=== PATIENT | female | born 1950 | race Caucasian/White ===

== ENCOUNTER → 2016-09-06 | Outpatient (CLI) | payer OTHER ==
[~2016-09-06] MED LIST: ESCI10TA17 PO
--- NOTE | 2016-09-06 16:31 | DIAGNOSTIC IMAGING REPORT ---
TWO VIEW CHEST CLINICAL HISTORY: Pulmonary nodules. Cough and dyspnea. FINDINGS: PA and lateral chest radiographs are compared to study dated 12/13/2011 and correlated with chest CT dated 12/30/2014. The cardiomediastinal silhouette is unremarkable. Scattered calcified granulomas are incidentally noted and unchanged. No airspace consolidation or pleural effusion is identified. There is no pneumothorax. The skeletal structures are osteopenic. The bony thorax appears intact. Cholecystectomy clips are seen in the right upper quadrant. IMPRESSION: No active disease in the chest. Electronically signed by: Law Witt M.D. 09/06/2016 4:30 PM Dictated Date/Time: 09/06/2016 4:28 PM
== END | disposition home or self-care (01) ==
LOC: C.RADPV 16:13
PROVIDERS: ATTEND Nurse Practitioner
DX: R05 Cough (principal); R06.09 Other forms of dyspnea; R91.8 Other nonspecific abnormal finding of lung field

== ENCOUNTER → 2016-09-09 | Outpatient (CLI) | payer OTHER ==
[2016-09-09 13:18] LABS: BLOOD UREA NITROGEN 12 mg/dl (7-18); BUN/CREATININE RATIO 16.9 (10-20); CARBON DIOXIDE 28 mmol/L (21-32); CHLORIDE 108 mmol/L (98-107); CREATININE 0.74 mg/dl (0.60-1.20); GLUCOSE 97 mg/dl (70-99); SODIUM 142 mmol/L (136-145)
[2016-09-09 13:21] LABS: CHOLESTEROL 167 mg/dl (0-200); CHOLESTEROL/HDL RATIO 3.2; HDL CHOLESTEROL 53 mg/dl; LDL CHOLESTEROL CALCULATED 84 mg/dl; TRIGLYCERIDES 148 mg/dl (0-150); VERY LOW DENSITY LIPOPROT CALC 30 mg/dl
== END | disposition home or self-care (01) ==
LOC: C.LABPVFM 09:50
PROVIDERS: ATTEND Nurse Practitioner
DX: Z13.220 Encounter for screening for lipoid disorders (principal); Z13.1 Encounter for screening for diabetes mellitus; M81.0 Age-related osteoporosis without current pathological fracture

== ENCOUNTER → 2016-09-13 | Outpatient (CLI) | payer OTHER ==
[~2016-09-13] MED LIST changes: +OPTIRAY 320 IV PRN
--- NOTE | 2016-09-13 09:57 | DIAGNOSTIC IMAGING REPORT ---
CT ANGIOGRAM OF THE CHEST CLINICAL HISTORY: Persistent cough COMPARISON STUDY: 12/30/2014 TECHNIQUE: Following the IV administration of 92 mL of Optiray-320, CT angiogram of the thorax was performed from the thoracic inlet to the lung bases utilizing the pulmonary embolus protocol. Images are reviewed in the axial, sagittal, and coronal planes. IV contrast was administered without complication. MIP imaging was performed. CT DOSE: 435.91 mGycm FINDINGS: No pathologically enlarged axillary mediastinal or hilar lymph nodes were visualized. There was no evidence of thoracic aortic dilatation. There were no pulmonary artery filling defects to indicate acute pulmonary embolism. No pleural effusions are visualized. There is no evidence of focal pulmonary consolidation. There are scattered calcified granulomas. There is a stable 4 mm noncalcified right lower lobe point nodule. There is a stable 3 mm subpleural noncalcified right lower lobe pulmonary nodule. There is a third 3 mm noncalcified right lower lobe pulmonary nodule which also remain stable. There is a stable 4 mm noncalcified subpleural lingular nodule. IMPRESSION: 1. No CT evidence of acute pulmonary embolism 2. No evidence of pathologic adenopathy 3. Stable calcified and noncalcified solid subcentimeter pulmonary nodules. No follow-up is indicated. 4. No evidence of acute parenchymal consolidation Electronically signed by: Jose Martin Casey M.D. 09/13/2016 9:56 AM Dictated Date/Time: 09/13/2016 9:50 AM
--- NOTE | 2016-09-13 10:00 | DIAGNOSTIC IMAGING REPORT ---
ABDOMEN COMPLETE (US) HISTORY: R05 Cough, [id number] Abdominal fullness in left upper quad TECHNIQUE: Multiple real time sonographic images of the abdomen were obtained assessing hickman-scale appearance. FINDINGS: PANCREAS: The pancreas is partially obscured by bowel gas. The visualized portions of the pancreas are normal without focal lesion or pancreatic duct dilatation. LIVER: The liver demonstrates a homogeneous parenchymal echotexture. There is no intrahepatic bile duct dilation, focal lesion, or contour nodularity. There is no ascites. The liver is not well seen secondary to obscuring bowel gas. GALLBLADDER: Surgically absent. The common bile duct measures 0.03 cm. RIGHT KIDNEY: The right kidney measures 10.2 cm. The parenchymal echotexture and cortical thickness are normal. No nephrolithiasis or hydronephrosis. LEFT KIDNEY: The left kidney measures 10.9 cm. The parenchymal echotexture and cortical thickness are normal. No nephrolithiasis or hydronephrosis. Thin-walled centrally anechoic benign-appearing cyst of the superior pole left kidney seen measuring up to 2.4 cm. SPLEEN: The spleen measures 9.6 cm and is normal in echotexture. Calcifications of the spleen are seen. VASCULATURE: The abdominal aorta and IVC appear unremarkable. The aorta measures up to 1.9 cm proximally. IMPRESSION: 1. No acute sonographic abnormality of the abdomen is identified. 2. Calcifications of the spleen suggest prior granulomatous disease. 3. Benign-appearing cyst of the left kidney measures 2.4 cm. 4. Surgically absent gallbladder. The above report was generated using voice recognition software. It may contain grammatical, syntax or spelling errors. Electronically signed by: Elias Irving M.D. 09/13/2016 9:58 AM Dictated Date/Time: 09/13/2016 9:53 AM
== END | disposition home or self-care (01) ==
LOC: C.CTS 09:04
PROVIDERS: ATTEND Nurse Practitioner
DX: R06.09 Other forms of dyspnea (principal); R05 Cough; R91.8 Other nonspecific abnormal finding of lung field; D73.89 Other diseases of spleen; N28.1 Cyst of kidney, acquired; Z90.49 Acquired absence of other specified parts of digestive tract

== ENCOUNTER → 2016-09-20 | Outpatient (CLI) | payer OTHER ==
[~2016-09-20] MED LIST changes: -OPTIRAY 320 IV PRN
== END | disposition home or self-care (01) ==
LOC: C.LABPVFM 09:43
PROVIDERS: ATTEND Nurse Practitioner
DX: R05 Cough (principal); R06.09 Other forms of dyspnea

== ENCOUNTER → 2016-09-23 | Outpatient (CLI) | payer OTHER ==
[2016-09-23 14:51] LABS: BASO % 0.8 %; BASO ABS # 0.06 K/uL (0-0.2); COMPLETE YES; EOS % 1.4 %; HEMATOCRIT 38.1 % (37-47); IG% 0.1 %; LYMPH % 18.7 %; LYMPH ABS # 1.37 K/uL (1.2-3.4); MEAN CELL VOLUME 75.7 fL (80-100); MEAN CORPUSCULAR HEMOGLOBIN 24.3 pg (25-34); MEAN PLATELET VOLUME 8.9 fL (7.4-10.4); MONO % 7.2 %; NEUT % 71.8 %; PLATELET COUNT 258 K/uL (130-400); RED BLOOD COUNT 5.03 M/uL (4.2-5.4); WHITE BLOOD COUNT 7.34 K/uL (4.8-10.8)
[2016-09-25 14:20] LABS: QUANTIFERON NIL 0.07 IU/ML
[2016-09-28 05:18] LABS: ANTI-CENTROMERE AB <1.0 NEG AI (<1.0 NEG); ANTI-SS-A <1.0 NEG AI (<1.0 NEG); ANTI-SS-B <1.0 NEG AI (<1.0 NEG); DNA ds CRITHIDIA NEGATIVE (NEGATIVE); Sm Antibody <1.0 NEG AI (<1.0 NEG)
== END | disposition home or self-care (01) ==
LOC: C.LAB1850 12:36
PROVIDERS: ATTEND Internal Medicine Pulmonary Disease
DX: J84.10 Pulmonary fibrosis, unspecified (principal); M19.90 Unspecified osteoarthritis, unspecified site; R05 Cough

== ENCOUNTER → 2016-11-20 | Outpatient (CLI) | payer OTHER ==
--- NOTE | 2016-11-20 15:16 | MAMMOGRAPHY REPORT ---
BILATERAL DIGITAL DIAGNOSTIC MAMMOGRAM TOMOSYNTHESIS WITH CAD AND TARGETED LEFT ULTRASOUND: 11/20/2016 CLINICAL HISTORY: 66-year-old woman presents with a palpable lump and sharp pain in the lower inner q uadrant of the left breast, worse with palpation. She has been feeling this abnormality "regularly o marilin the past 3 years". No skin erythema or nipple discharge. Family history of breast cancer = cous in. TECHNIQUE: Bilateral breast tomosynthesis in addition to standard 2D mammography was performed. Curre nt study was also evaluated with a Computer Aided Detection (CAD) system. COMPARISON: Comparison is made to exams dated: 01/27/2015 mammogram, 07/31/2010 mammogram, 07/27/2009 mammogram - [facility], 07/26/2008, 07/23/2007, and 07/18/2006. BREAST COMPOSITION: There are scattered areas of fibroglandular density in both breasts. FINDINGS: A square shaped skin pain marker overlies the abnormality in the lower inner quadrant of th e left breast, pointed out by the patient. There is stable asymmetry in the lateral left breast. No new suspicious mass, architectural distortion or cluster of microcalcifications is seen. Targeted ultrasound was performed in the area of palpable ridge and pain in the 8:00 left breast, 9 c m from the nipple, in the area pointed out by the patient. On palpation, there is a soft palpable ri dge. On ultrasound, there is sonographically normal tissue without evidence of a discrete solid or c ystic mass. IMPRESSION: ACR BI-RADS CATEGORY 2: BENIGN, TARGETED ULTRASOUND ACR BI-RADS CATEGORY 2: BENIGN 1. No suspicious mammographic or sonographic abnormality in the area of pain and palpable ridge in th e 8:00 left breast. Therefore, clinical follow-up is recommended, as biopsy of a clinically suspicio us mass should not be precluded by negative imaging. 2. Overall, there is no mammographic or targeted sonographic evidence of malignancy. A 1 year screen ing mammogram is recommended. The patient has been verbally notified of the results. Approximately 10% of breast cancers are not detected with mammography. A negative mammographic report should not delay biopsy if a clinically suggestive mass is present. Alka Huff M.D. ay/:11/20/2016 08:43:58 Box Sealing Machine Feeder: Kathi Iniguez, [facility] letter sent: Normal 03/04 BI-RADS Code: ACR BI-RADS Category 2: Benign Ultrasound BI-RADS: ACR BI-RADS Category 2: Benign
== END | disposition home or self-care (01) ==
LOC: C.MAMM 07:58
PROVIDERS: ATTEND Nurse Practitioner
DX: N64.4 Mastodynia (principal)

== ENCOUNTER → 2016-12-20 | Outpatient (CLI) | payer OTHER | END | disposition home or self-care (01) | LOC: C.LAB1850 08:54 | PROVIDERS: ATTEND Internal Medicine Pulmonary Disease | DX: R05 Cough (principal) ==

== ENCOUNTER → 2017-04-22 | Outpatient (CLI) | payer OTHER ==
[~2017-04-22] MED LIST changes: +DOXY100C76 PO; +ESCI1TAB10 PO; +MOME200A INH
--- NOTE | 2017-04-22 14:10 | DIAGNOSTIC IMAGING REPORT ---
R VENOUS DOPP LOWER EXT UNILAT CLINICAL HISTORY: 729.5,M79.669 pain. Edema. TECHNIQUE: Venous Doppler COMPARISON STUDY: None FINDINGS: Mild soft tissue edema anterior aspect of the lower leg. All major venous structures are unremarkable. Flow characteristics as well as impedance characteristics are unremarkable. There is no evidence for abnormality of augmentation. IMPRESSION: Normal study with no evidence for deep venous thrombosis. Mild soft tissue edema anterior aspect of the lower leg. The above report was generated using voice recognition software. It may contain grammatical, syntax or spelling errors. Electronically signed by: Rob Fagan M.D. 04/22/2017 2:08 PM Dictated Date/Time: 04/22/2017 2:07 PM
== END | disposition home or self-care (01) ==
LOC: C.ULTRBC 13:40
PROVIDERS: ATTEND Nurse Practitioner
DX: M79.669 Pain in unspecified lower leg (principal)

== ENCOUNTER 2017-04-28 13:50 | Emergency (ER) | payer OTHER ==
[~2017-04-28] VITALS: Ht 160 cm; Wt 72.7 kg
[~2017-04-28 13:50] MED LIST changes: -DOXY100C76 PO; -ESCI1TAB10 PO; -MOME200A INH
[2017-04-28 13:53] VITALS: Ht 160 cm; Wt 72.7 kg
--- NOTE | 2017-04-28 14:22 | EMERGENCY ROOM VISIT NOTE ---
History First contact with patient: 14:07 Chief Complaint: OTHER COMPLAINT Stated Complaint: CELLULITUS History of Present Illness The patient is a 66 year old female who presents to the Emergency Room via private vehicle accompanied by with complaints of "cellulitis". The patient states that for the past 3 weeks she has been experiencing at the medial aspect of the R distal ankle. She notes that it is worse with movement of the right ankle, ambulation and her swelling at nighttime. She notes minimal redness. She has been treated by the family doctor for cellulitis but notes that the pain progresses. She is on doxycycline. She denies any fevers or chills. She rates the pain at times as a 10/10. The worst position for the foot is in plantarflexion with driving in regard to pain Review of Systems A complete 6-point Review of Systems was discussed with the patient, with pertinent positives and negatives listed in the History of Present Illness. All remaining Review of Systems questions can be considered negative unless otherwise specified. Past Medical/Surgical History No pertinent Social History Smoking Status: Never Smoker Marital Status: Occupation Status: employed Current/Historical Medications Scheduled Doxycycline Monohydrate (Monodox), 100 MG PO BID Escitalopram Oxalate (Lexapro), 20 MG PO DAILY Mometasone Furoate-Formoterol (Dulera 200/5 Mcg), 2 PUFFS INH BID Physical Exam Vital Signs Date Time Temp Pulse Resp B/P (MAP) Pulse Ox O2 Delivery O2 Flow Rate FiO2 04/28/17 13:53 36.5 88 18 118/78 96 Room Air Physical Exam VITAL SIGNS - Vital signs and nursing notes were reviewed. Stable, afebrile. GENERAL -66-year-old female appearing her stated age who is in no acute distress. Communicates well with provider and answers questions appropriately. SKIN - Minimal erythema overlying the distal lizarraga and medial R ankle. HEAD - NC/AT. EXTREMITIES - No clubbing or peripheral cyanosis. No pretibial edema present. Skin as above. There is tenderness overlying the R medial ankle and distal lizarraga. She is neurovascularly intact in the RLE. Medical Decision & Procedures ER Provider Diagnostic Interpretation: R TIBIA/FIBULA 2 VIEWS ROUTINE CLINICAL HISTORY: 66 years-old Female presenting with R lizarraga pain. TECHNIQUE: Frontal and lateral views of the right lower leg were obtained. COMPARISON: None. FINDINGS: Knee joint and ankle mortise congruent. No acute fracture or malalignment. No advanced degenerative change. No radiographic soft tissue abnormality. IMPRESSION: No acute osseous injury of the right lower leg. Electronically signed by: Jose Casillas M.D. 04/28/2017 2:42 PM Dictated Date/Time: 04/28/2017 2:41 PM Laboratory Results 04/28/17 14:24 Red Blood Count 4.82, Mean Corpuscular Volume 80.3, Mean Corpuscular Hemoglobin 26.8, Mean Corpuscular Hemoglobin Concent 33.3, Mean Platelet Volume 8.8, Neutrophils (%) (Auto) 55.3, Lymphocytes (%) (Auto) 33.4, Monocytes (%) (Auto) 6.5, Eosinophils (%) (Auto) 2.8, Basophils (%) (Auto) 1.8, Neutrophils # (Auto) 3.00, Lymphocytes # (Auto) 1.81, Monocytes # (Auto) 0.35, Eosinophils # (Auto) 0.15, Basophils # (Auto) 0.10 04/28/17 14:24 Test 04/28/17 14:24 White Blood Count 5.42 K/uL (4.8-10.8) Red Blood Count 4.82 M/uL (4.2-5.4) Hemoglobin 12.9 g/dL (12.0-16.0) Hematocrit 38.7 % (37-47) Mean Corpuscular Volume 80.3 fL (80-100) Mean Corpuscular Hemoglobin 26.8 pg (25-34) Mean Corpuscular Hemoglobin Concent 33.3 g/dl (32-36) Platelet Count 231 K/uL (130-400) Mean Platelet Volume 8.8 fL (7.4-10.4) Neutrophils (%) (Auto) 55.3 % Lymphocytes (%) (Auto) 33.4 % Monocytes (%) (Auto) 6.5 % Eosinophils (%) (Auto) 2.8 % Basophils (%) (Auto) 1.8 % Neutrophils # (Auto) 3.00 K/uL (1.4-6.5) Lymphocytes # (Auto) 1.81 K/uL (1.2-3.4) Monocytes # (Auto) 0.35 K/uL (0.11-0.59) Eosinophils # (Auto) 0.15 K/uL (0-0.5) Basophils # (Auto) 0.10 K/uL (0-0.2) RDW Standard Deviation 47.4 fL (36.4-46.3) RDW Coefficient of Variation 16.1 % (11.5-14.5) Immature Granulocyte % (Auto) 0.2 % Immature Granulocyte # (Auto) 0.01 K/uL (0.00-0.02) Erythrocyte Sedimentation Rate 7 mm/hr (0-21) Prothrombin Time 10.0 SECONDS (9.0-12.0) Prothromb Time International Ratio 1.0 (0.9-1.1) Activated Partial Thromboplast Time 23.9 SECONDS (21.0-31.0) Partial Thromboplastin Ratio 0.9 Anion Gap 5.0 mmol/L (3-11) Est Creatinine Clear Calc Drug Dose 79.8 ml/min Estimated GFR () 107.1 Estimated GFR (Non- 92.4 BUN/Creatinine Ratio 18.9 (10-20) Calcium Level 8.5 mg/dl (8.5-10.1) Magnesium Level 2.1 mg/dl (1.8-2.4) Total Bilirubin 0.3 mg/dl (0.2-1) Aspartate Amino Transf (AST/SGOT) 21 U/L (15-37) Alanine Aminotransferase (ALT/SGPT) 28 U/L (12-78) Alkaline Phosphatase 116 U/L (45-117) Total Creatine Kinase 75 U/L (26-192) C-Reactive Protein < 0.29 mg/dl (0-0.29) Total Protein 7.1 gm/dl (6.4-8.2) Albumin 3.6 gm/dl (3.4-5.0) Globulin 3.5 gm/dl (2.5-4.0) Albumin/Globulin Ratio 1.0 (0.9-2) Lyme Disease IgG Antibody NEG (NEG) Medical Decision Patient was seen and evaluated as above. She presents to us today with right distal leg pain. Recent ultrasound to rule out DVT was reviewed and was found to be negative. X-ray was obtained and negative. After obtaining a thorough history and physical examination the above work up was performed. There is no concerning leukocytosis, anemia or inflammatory marker. lyme Testing pending. I suspect she likely is experiencing a musculoskeletal etiology, and most likely insertion of the ligamentous structures at the right distal lizarraga/ankle. She will be given a Tim wrap, and is to follow with family doctor or orthopedics. She declined pain medication. The patient was educated upon management, had questions answered prior to discharge, and was discharged home in good condition. No evidence of infection on my exam. Case was discussed with the attending physician In the evaluation and treatment of this patient, the following differential diagnoses were considered: Ankle Fracture, Ankle Sprain, Distal Fibula Fracture , Distal Tibia Fracture, Foot Fracture, Maisonneuve Fracture. Impression Primary Impression: Ankle pain, right Departure Information Dispostion Home / Self-Care Condition GOOD Referrals Lillian Cabrera C.R.N.P (PCP) Daquan Ledezma M.D. Patient Instructions [facility] Additional Instructions You have been treated in the Emergency Department for a r Ankle pain and leg pain. For pain control, you can use the following [id number] medicines (if >12 yo): - Regular strength (325mg/tab) Tylenol (acetaminophen) 2 tabs every 4-6 hours as needed. Do not exceed 12 tablets in a 24 hour period. Avoid taking more than 3 grams (3000 mg) of Tylenol per day. This includes any other sources of acetaminophen you may take on a regular basis. - Regular strength (200 mg/tab) Advil (ibuprofen) 1-2 tabs every 4-6 hours as needed. Do not exceed a dose of 3200 mg per day. Ice every 3 hours for 30 minutes for the next 3 days then back off gradually You have been provided the number for an Orthopaedic Surgeon. You should call this number as soon as possible to establish a follow-up visit from today's Emergency Department visit. use the tim wrap for compression. Return to the Emergency Department if your current symptoms worsen despite treatment course outlined above, or if you develop any of the following symptoms : intractable pain despite aforementioned treatment course or new onset of numbness or tingling of the foot.
[2017-04-28 14:38] LABS: BASO % 1.8 %; EOS % 2.8 %; EOS ABS # 0.15 K/uL (0-0.5); HEMATOCRIT 38.7 % (37-47); HEMOGLOBIN 12.9 g/dL (12.0-16.0); IG# 0.01 K/uL (0.00-0.02); LYMPH % 33.4 %; LYMPH ABS # 1.81 K/uL (1.2-3.4); MEAN CELL VOLUME 80.3 fL (80-100); MEAN CORPUSCULAR HEMOGLOBIN 26.8 pg (25-34); MEAN CORPUSCULAR HGB CONC 33.3 g/dl (32-36); MEAN PLATELET VOLUME 8.8 fL (7.4-10.4); MONO % 6.5 %; MONO ABS # 0.35 K/uL (0.11-0.59); NEUT % 55.3 %; PLATELET COUNT 231 K/uL (130-400); RED CELL DISTRIBUTION WIDTH CV 16.1 % (11.5-14.5); RED CELL DISTRIBUTION WIDTH SD 47.4 fL (36.4-46.3); WHITE BLOOD COUNT 5.42 K/uL (4.8-10.8)
--- NOTE | 2017-04-28 14:44 | DIAGNOSTIC IMAGING REPORT ---
R TIBIA/FIBULA 2 VIEWS ROUTINE CLINICAL HISTORY: 66 years-old Female presenting with R lizarraga pain. TECHNIQUE: Frontal and lateral views of the right lower leg were obtained. COMPARISON: None. FINDINGS: Knee joint and ankle mortise congruent. No acute fracture or malalignment. No advanced degenerative change. No radiographic soft tissue abnormality. IMPRESSION: No acute osseous injury of the right lower leg. Electronically signed by: Jose Casillas M.D. 04/28/2017 2:42 PM Dictated Date/Time: 04/28/2017 2:41 PM
[2017-04-28 14:47] LABS: PTT PATIENT 23.9 SECONDS (21.0-31.0)
[2017-04-28 14:55] LABS: ALBUMIN 3.6 gm/dl (3.4-5.0); ALT/SGPT 28 U/L (12-78); AST/SGOT 21 U/L (15-37); BLOOD UREA NITROGEN 13 mg/dl (7-18); CALCIUM 8.5 mg/dl (8.5-10.1); CARBON DIOXIDE 28 mmol/L (21-32); CREATININE 0.68 mg/dl (0.60-1.20); GLUCOSE 87 mg/dl (70-99); POTASSIUM 4.1 mmol/L (3.5-5.1); SODIUM 139 mmol/L (136-145)
[2017-04-28 14:59] LABS: ALKALINE PHOSPHATASE 116 U/L (45-117); TOTAL PROTEIN 7.1 gm/dl (6.4-8.2)
[2017-04-28] MEDS ORDERED: MOME200A INH (15:12)
[2017-04-28] MEDS ORDERED: ESCI1TAB10 PO (15:12)
[2017-04-28] MEDS ORDERED: DOXY100C76 PO (15:12)
[2017-04-28 16:35] VITALS: BP 118/78; PULSE 88; TEMP 36.5; O2SAT 96
== END 2017-04-28 16:37 | disposition home or self-care (01) ==
LOC: C.EDB 13:52 → C.EDD 16:37
DX: M25.571 Pain in right ankle and joints of right foot (principal); L03.115 Cellulitis of right lower limb; Z79.899 Other long term (current) drug therapy

== ENCOUNTER → 2017-05-06 | Outpatient (CLI) | payer OTHER ==
[~2017-05-06] MED LIST changes: +DOXY100C76 PO; -ESCI10TA17 PO; +ESCI1TAB10 PO; +MOME200A INH
--- NOTE | 2017-05-06 17:14 | DIAGNOSTIC IMAGING REPORT ---
R LOWER EXT JOINT WITHOUT CLINICAL HISTORY: R ANKLE STRESS FX *PT HAS GALLBLADDER CLIP* trauma TECHNIQUE: Multi axial MRI acquisition COMPARISON STUDY: None FINDINGS: Signal characteristics the osseous structures indicate mild bone contusion with a potential small incomplete cortical stress fracture of the medial tibial metaphysis. Signal characteristics of all remaining osseous structures are unremarkable. All major ligamentous and tendinous structures are intact. Collateral ligaments are intact. There is mild soft tissue edema at the medial aspect of the ankle. There is perhaps a slight degree of mild posterior tibial tendon tendinopathy. Ankle mortise is aligned anatomically. Structures the plantar fascia are unremarkable. IMPRESSION: 1. Bone marrow edema of the anteromedial aspect of the distal tibia suggesting either bone contusion and/or incomplete hairline cortical stress fracture. 2. This is associated with mild soft tissue edema at the medial aspect of the ankle and minimal/mild posterior tibial tendinopathy. 3. All remaining ligamentous and tendinous structures are unremarkable. The above report was generated using voice recognition software. It may contain grammatical, syntax or spelling errors. Electronically signed by: Rob Fagan M.D. 05/06/2017 5:12 PM Dictated Date/Time: 05/06/2017 5:05 PM
== END | disposition home or self-care (01) ==
LOC: C.MRIBC 16:28
PROVIDERS: ATTEND Orthopaedic Surgery Orthopaedic Surgery of the Spine
DX: M84.371A Stress fracture, right ankle, initial encounter for fracture (principal); X58.XXXA Exposure to other specified factors, initial encounter

== ENCOUNTER → 2017-06-27 | Outpatient (CLI) | payer OTHER ==
--- NOTE | 2017-06-27 12:36 | DIAGNOSTIC IMAGING REPORT ---
RIGHT LOWER EXTREMITY VENOUS DOPPLER CLINICAL HISTORY: PAIN R LOWER LEG COMPARISON STUDY: Right lower extremity venous Doppler April 22, 2017. TECHNIQUE: Sonography of the deep venous system of the right lower extremity was performed. Compression and augmentation were evaluated. FINDINGS: The right common femoral, superficial femoral and popliteal veins were compressible. Augmentation was normal. Flow was shown within the deep calf vessels. IMPRESSION: No evidence of deep venous thrombus within the right lower extremity. Electronically signed by: Peyman Tate M.D. 06/27/2017 12:34 PM Dictated Date/Time: 06/27/2017 12:34 PM
== END | disposition home or self-care (01) ==
LOC: C.ULTR 12:10
PROVIDERS: ATTEND Family Medicine Sports Medicine
DX: M79.661 Pain in right lower leg (principal); M79.89 Other specified soft tissue disorders

== ENCOUNTER → 2017-06-27 | Outpatient (CLI) | payer OTHER | END | disposition home or self-care (01) | LOC: C.RDSM 10:30 | PROVIDERS: ATTEND Family Medicine Sports Medicine | DX: M79.604 Pain in right leg (principal) ==

== ENCOUNTER 2022-05-16 13:55 | Inpatient (IN) ==
[2022-05-16] MEDS ORDERED: ALBUT/IPRATROP 3MG/0.5MG NEB 3 ML VIAL INH STA (14:01)
--- NOTE | 2022-05-16 14:01 | ED Triage Note ---
Date of Service May 16, 2022 History of Present Illness This patient was briefly evaluated while in triage. An abbreviated physical exam was performed. This patient is a 71-year-old Female who presents to the ED for evaluation of SOB started yesterday hx of COPD no chest pain using inhalers but no nebulizers productive cough no fevers Physical Exam GENERAL: NAD CARDIOVASCULAR: RRR RESPIRATORY: audible upper airway sounds, wheezes throughout ABDOMEN: BS x 4. Nontender to palpation. Initial orders for labs and / or imaging were placed and patient was placed in the waiting area until a bed is available. Please see further documentation for the full ED course.
[2022-05-16 15:04] LABS: Basophils # (auto) 0.05 K/uL (0-0.2); Basophils % (auto) 0.4 %; Eosinophils # (auto) 0.16 K/uL (0-0.50); Eosinophils % (auto) 1.3 %; Hematocrit (blood only) 42.4 % (37.0-47.0); Hemoglobin 15.4 g/dl (12.0-16.0); Immature Granulocytes # (auto) 0.04 K/uL (0.01-0.20); Immature Granulocytes % (auto) 0.3 %; Lymphocytes # (auto) 1.87 K/uL (1.2-3.4); Lymphocytes % (auto) 14.9 %; Mean Corpuscular Hemoglobin 30.4 pg (25.0-34.0); Mean Corpuscular Hgb Conc 36.3 g/dL (32.0-36.0); Mean Corpuscular Volume 83.6 fL (80.0-100.0); Mean Platelet Volume 9.2 fL (9.4-12.4); Monocytes # (auto) 1.01 K/uL (0.11-0.59); Monocytes % (auto) 8.1 %; Neutrophils # (auto) 9.39 K/uL (1.40-6.50); Platelet Count 291 K/uL (130-400); RDW Coefficient of Variation 13.1 % (11.5-14.5); RDW Standard Deviation 39.6 fL (36.4-46.3); Red Blood Count 5.07 M/uL (4.20-5.40); White Blood Count 12.52 K/ul (4.8-10.8)
--- NOTE | 2022-05-16 15:14 | XRay Report ---
XR chest 2V PA/lateral CLINICAL HISTORY: Dyspnea. COMPARISON STUDY: Chest CT October 25, 2021. FINDINGS: Lung volumes are normal. There is no consolidation to suggest pneumonia. Calcified pulmonar y nodules are again noted. There is no pneumothorax or pleural effusion. Cardiac size is normal. Medi astinal contours are normal. There is no evidence for pulmonary edema. IMPRESSION: No acute cardiopulmonary findings. No change in appearance of the chest. ACT 112: Negative or not required by law. Electronically signed by: Peyman Tate M.D. 05/16/2022 3:13 PM
[2022-05-16 15:23] LABS: Albumin Globulin Ratio 1.3 (0.9-2); Albumin Level 4.5 gm/dl (3.4-5.0); BUN Creatinine Ratio 15.5 (10-20); Bilirubin,Total 1.1 mg/dl (0.2-1.0); Calcium 9.7 mg/dl (8.5-10.1); Creatinine Clr Calc Pharmacy 68.8 ml/min; Est GFR (African American) 100.7 ml/min; Est GFR (Non-African American) 86.9 ml/min; Globulin 3.4 gm/dl (2.5-4.0); Potassium 3.8 mmol/L (3.5-5.1); Total Protein 7.9 gm/dl (6.0-8.3)
[2022-05-16 15:29] LABS: Troponin I High Sensitivity 5.7 pg/ml (0-14)
--- NOTE | 2022-05-16 16:23 | Emergency Department Note ---
Impression & Plan Dyspnea on exertion, Diffuse wheezing, Cough ED Provider Note NAME: RACHEL STERN AGE: 71 SEX: F : 1950 ARRIVES VIA: Walk-In INFORMANT: Patient, ED PROVIDER(S): Ambrose Shepherd MD CHIEF COMPLAINT: Shortness of breath, cough MEDICAL DECISION MAKING: Patient presents due to concern for worsening shortness of breath that began yesterday. The patient does have HARTMAN but no orthopnea or leg swelling. Blood work was obtained and IV was established. The patient had already received DuoNeb treatments and did have improvement in symptoms. Additional hour-long ordered along with IV fluids IV Zofran and 2 g of IV magnesium to be given over 1 hour. Bio fire also ordered. I did review the patient's blood work. Patient WBC of 12 with a normal H&H and platelet count. Kidney function is unremarkable. BSG 120. Bilirubin 1.1 but no right upper quadrant pain. Troponin not elevated. EKG with no signs of obvious STEMI. I did reevaluate the patient after treatment the patient did have improvement in symptoms but the patient's exam is not improved. Given this I do not think it lozada to send the patient home at this time. The patient did undergo an ambulatory trial and did not desat but still given the patient's persistent exam urgency with the on-call hospitalist service. It is with the on-call hospitalist service the patient was admitted back to Dr. Zuluaga. Prior /Outside records reviewed: Did review the patient's most recent pulmonary visit from Dr. Street in March 2022. Patient has history of granulomatous lung disease cough and multiple pulmonary nodules. No reported need for follow-up of pulmonary nodules. Patient's PFTs from January noted lung volumes confirmed with mild restriction with decreased diffusion capacity which improves when adjusted for alveolar ventilation. Spirometry is normal without change after administration of inhaled bronchodilators. Patient reportedly is pending ENT follow-up. Differential diagnosis: Reactive airway disease, pneumonia, pneumothorax, COPD, CHF, infections, cardiac ischemia, pulmonary embolism, musculoskeletal, gastrointestinal, as well as other pathologies. Diagnostics, as interpreted by me: ECG: Normal sinus rhythm, rate 99 normal intervals normal axis no ST elevations, T wave flattening in V2. Cardiac monitoring: An order was placed for continuous cardiac monitoring. The monitor shows a rate of 105 with tachycardic and rate rhythm. Patient was placed on pulse oximetry Medical decision rules: None Imaging studies: See below HPI: Patient does present due to concern for shortness of breath and associated cough. Patient states that she has had some chronic symptoms but seem to worsen beginning yesterday. The patient has been seen by pulmonology and is still pending ENT follow-up. Patient does feel as though symptoms are coming from her chest and on her neck. Patient denies any current sore throat. Patient did feel better after DuoNeb treatment which was given in triage prior to being roomed. Patient states that she has not smoked since she was 23 years of age. 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 The patient has a prior history of kidney granulomatosis. Patient denies any chest pains or leg swelling no history of DVT or PE. No recent surgeries or travel. PAST MEDICAL HISTORY: See Below PAST SURGICAL HISTORY: See Below SOCIAL HISTORY: See Below HOME MEDICATIONS: See Below ALLERGIES: See Below VITALS: See Below PHYSICAL EXAMINATION: GENERAL: Mildly ill in appearance, actively vomiting, wearing glasses. EYE EXAM: Normal conjunctiva. PERRL, no anisocoria and EOM's grossly intact w/o pain. NECK: Supple, no nuchal rigidity, no adenopathy, non-tender. No signs of menin gismus. FROM of the neck with good chin to chest and neck extension. No stridor. LUNGS: Diffuse wheezing throughout. HEART: Tachycardic and regular, no MRG. ABDOMEN: Abdomen soft, non-tender, normo-active bowel sounds, no masses, no rebound or guarding. BACK: No CVA TTP. SKIN: No rashes and no bruising. UPPER EXTREMITIES: Upper extremities are grossly normal. LOWER EXTREMITIES: Grossly normal, no edema. Negative Homans' sign bilaterally. NEURO EXAM: A&O x3, cranial nerves II-XII grossly intact, normal speech, moves all 4 extremities. Past Med/Surg History Medical History Arthritis COVID-19 Depression Diverticulosis Granulomatous lung disease Hiatal hernia History of colon polyps Multiple pulmonary nodules Osteoporosis 03/24 dexa - osteopenia Peripheral edema Peripheral edema Surgical History History of bilateral tubal ligation History of cholecystectomy History of colonoscopy with polypectomy History of esophagogastroduodenoscopy (EGD) History of left knee surgery x5 History of low transverse section History of tonsillectomy and adenoidectomy History of tooth extraction all upper teeth/partial lower History of total hysterectomy with bilateral salpingo-oophorectomy (BSO) History of total left knee replacement (TKR) Hx of appendectomy Hx of laparoscopy Family History Sister Family history of diabetes mellitus Leukemia COPD (chronic obstructive pulmonary disease) Cancer Family hx colonic polyps Brother Family history of diabetes mellitus COPD (chronic obstructive pulmonary disease) Family hx colonic polyps Father Family history of diabetes mellitus Other No family history of adverse response to anesthesia Denies family history of Ovarian cancer Prostate cancer Myocardial infarction Breast cancer Colorectal cancer Social History Smoking Status: Former smoker Tobacco Type: Cigarettes Age Started Using Tobacco: 18; Age Quit Using Tobacco: 24; Second Hand Exposure: No (father/brothers smoked); Hx Alcohol Use: No Hx Substance Use: No Preferred Language: Mosotho Communication Ability: Effective Hearing Ability: Normal Tax Technician Required: No Beliefs That Will Affect Care: None marital status: / Current Living Situation: Alone Current Living Situation Comment: currently mom is staying with pt current occupational status: retired How many Children do You have: 1 Feels Safe at Home: Yes Childhood Exposure to Second-Hand Smoke: Yes caffeine: Yes Dental Care, Regularly: Yes Physical Activity Frequency: 5-6 Times per Week Seatbelt Use: always Sunscreen Use: Yes Assistive Devices: Denture - Upper, Denture - Lower and Glasses Allergies Allergies Allergy/AdvReac Type Severity Reaction Status Date / Time cefazolin Allergy Intermediate hives Verified 05/16/22 20:18 milnacipran [From Savella] Allergy Intermediate hives, Verified 05/16/22 20:18 nauseated duloxetine [From Cymbalta] AdvReac Severe Depression Verified 05/16/22 20:18 codeine AdvReac Mild NAUSEATED Verified 05/16/22 20:18 meperidine AdvReac Mild NAUSEATED Verified 05/16/22 20:18 morphine AdvReac Mild NASUEATED Verified 05/16/22 20:18 fabric softner Allergy Mild Unknown Uncoded 05/16/22 20:17 Home Meds Home Medications Medication Instructions Recorded Confirmed aluminum-mag hydroxide-simethicone 10 ml PO Q6H PRN .GI SYMPTOMS 03/14/22 05/16/22 200 mg-200 mg-20 mg/5 mL oral susp (Maalox Advanced) omeprazole magnesium 20 mg 20 mg PO DAILY PRN Acid Reflux 05/16/22 05/16/22 tablet,delayed release (Prilosec OTC) Previous Rx's Medication Instructions Recorded albuterol sulfate 90 mcg/actuation 1 inh inhalation QID PRN shortness 10/05/20 aerosol inhaler of breath or wheezing #8.5 grams diclofenac sodium 1 % topical gel 2 g topical QID PRN neck pain #100 10/05/20 grams escitalopram oxalate 20 mg tablet 20 mg PO QAM #30 tabs 06/07/21 fluticasone furoate 100 1 inh inhalation DAILY #60 ea 10/17/21 mcg-vilanterol 25 mcg/dose inhalation powder (Breo Ellipta) albuterol sulfate 2.5 mg/3 mL 2.5 mg (3 mL) inhalation QID PRN 01/07/22 (0.083 %) solution for nebulization shortness of breath or wheezing #90 mL montelukast 10 mg tablet 10 mg PO DAILY #30 tabs 02/01/22 (Singulair) Results & Data (ED) Vital Signs Vital Signs - 24 hr 05/16/22 13:59 05/16/22 14:01 05/16/22 14:41 Temperature 36.3 C L Temperature Source Skin Pulse Rate 108 H 115 H Pulse Rate from SpO2 Sensor Pulse Rhythm Regular Respiratory Rate 20 22 Respiratory Effort / Characteristics Non-Labored Spontaneous Non-Labored Spontaneous Respiratory Depth Normal Respiratory Pattern Regular Regular Blood Pressure 125/76 Blood Pressure Mean 92 Pulse Oximetry 94 95 Oxygen Delivery Method Room Air Room Air Nebulizer Oxygen Flow Rate 8 Sepsis Recent Fever Within 48 Hours No Sepsis New/Unexplained Change in Mental Status N/A Sepsis Action Taken by Nursing No Action Required 05/16/22 16:53 05/16/22 17:03 05/16/22 16:35 Temperature Temperature Source Pulse Rate 94 H 95 H Pulse Rate from SpO2 Sensor 96 H Pulse Rhythm Respiratory Rate 20 21 Respiratory Effort / Characteristics Non-Labored Spontaneous Respiratory Depth Respiratory Pattern Blood Pressure 132/77 Blood Pressure Mean 95 Pulse Oximetry 96 92 Oxygen Delivery Method Room Air Oxygen Flow Rate Sepsis Recent Fever Within 48 Hours Sepsis New/Unexplained Change in Mental Status Sepsis Action Taken by Nursing 05/16/22 17:00 05/16/22 17:30 05/16/22 18:00 Temperature Temperature Source Pulse Rate 99 H 80 115 H Pulse Rate from SpO2 Sensor 100 H 78 107 H Pulse Rhythm Respiratory Rate 19 22 23 Respiratory Effort / Characteristics Respiratory Depth Respiratory Pattern Blood Pressure Blood Pressure Mean Pulse Oximetry 90 98 98 Oxygen Delivery Method Oxygen Flow Rate Sepsis Recent Fever Within 48 Hours Sepsis New/Unexplained Change in Mental Status Sepsis Action Taken by Nursing 05/16/22 18:12 05/16/22 18:30 05/16/22 19:00 Temperature Temperature Source Pulse Rate 108 H 116 H 114 H Pulse Rate from SpO2 Sensor 85 71 115 H Pulse Rhythm Respiratory Rate 20 24 19 Respiratory Effort / Characteristics Respiratory Depth Respiratory Pattern Blood Pressure 145/65 H 118/51 L 128/66 Blood Pressure Mean 91 73 86 Pulse Oximetry 98 96 96 Oxygen Delivery Method Oxygen Flow Rate Sepsis Recent Fever Within 48 Hours Sepsis New/Unexplained Change in Mental Status Sepsis Action Taken by Nursing 05/16/22 19:30 Temperature Temperature Source Pulse Rate 123 H Pulse Rate from SpO2 Sensor 122 H Pulse Rhythm Respiratory Rate 18 Respiratory Effort / Characteristics Respiratory Depth Respiratory Pattern Blood Pressure 143/69 H Blood Pressure Mean 93 Pulse Oximetry 96 Oxygen Delivery Method Room Air Oxygen Flow Rate Sepsis Recent Fever Within 48 Hours Sepsis New/Unexplained Change in Mental Status Sepsis Action Taken by [facility] Medications Current Medication List: was personally reviewed by me Laboratory Data Attestation: I reviewed the patient's lab results. 05/16/22 14:43 05/16/22 14:43 Lab Results 05/16/22 05/16/22 05/16/22 Range/Units 14:43 14:43 16:48 WBC 12.52 H (4.8-10.8) K/ul RBC 5.07 (4.20-5.40) M/uL Hgb 15.4 (12.0-16.0) g/dl Hct 42.4 (37.0-47.0) % MCV 83.6 (80.0-100.0) fL MCH 30.4 (25.0-34.0) pg MCHC 36.3 H (32.0-36.0) g/dL RDW Std Deviation 39.6 (36.4-46.3) fL RDW Coeff of Divya 13.1 (11.5-14.5) % Plt Count 291 (130-400) K/uL MPV 9.2 L (9.4-12.4) fL Immature Gran % (Auto) 0.3 % Neut % (Auto) 75.0 % Lymph % (Auto) 14.9 % Harrison % (Auto) 8.1 % Eos % (Auto) 1.3 % Baso % (Auto) 0.4 % Neut # (Auto) 9.39 H (1.40-6.50) K/uL Lymph # (Auto) 1.87 (1.2-3.4) K/uL Harrison # (Auto) 1.01 H (0.11-0.59) K/uL Eos # (Auto) 0.16 (0-0.50) K/uL Baso # (Auto) 0.05 (0-0.2) K/uL Immature Gran # (Auto) 0.04 (0.01-0.20) K/uL VBG pH (7.36-7.41) VBG pCO2 (38-50) mmHg VBG pO2 mmHg VBG HCO3 mmol/L VBG O2 Saturation % VBG Base Excess mEq/L Sodium 136 (136-145) mmol/L Potassium 3.8 (3.5-5.1) mmol/L Chloride 103 (98-107) mmol/L Carbon Dioxide 26 (21-32) mmol/L Anion Gap 7 (3-11) BUN 11 (6-23) mg/dl Creatinine 0.71 (0.6-1.2) mg/dl Est Cr Clr Drug Dosing 68.8 ml/min Est GFR ( Amer) 100.7 ml/min Est GFR (Non-Af Amer) 86.9 ml/min BUN/Creatinine Ratio 15.5 (10-20) Glucose 120 H (70-99(Fasting)) mg/dl Calcium 9.7 (8.5-10.1) mg/dl Total Bilirubin 1.1 H (0.2-1.0) mg/dl AST 14 (13-39) U/L ALT 13 (7-52) U/L Alkaline Phosphatase 104 (34-104) U/L Troponin I High Sens 5.7 (0-14) pg/ml Total Protein 7.9 (6.0-8.3) gm/dl Albumin 4.5 (3.4-5.0) gm/dl Globulin 3.4 (2.5-4.0) gm/dl Albumin/Globulin Ratio 1.3 (0.9-2) Urine Color Urine Appearance (Clear) Urine pH (4.5-7.5) Ur Specific Stow (1.000-1.030) Urine Protein (Negative) Urine Glucose (UA) (Negative) Urine Ketones (Negative) Urine Blood (Negative) Urine Nitrite (Negative) Urine Bilirubin (Negative) Urine Urobilinogen (Negative) Ur Leukocyte Esterase (Negative) Urine WBC (Auto) (0-5) /hpf Urine RBC (Auto) (0-4) /hpf U Hyaline Cast (Auto) (0-5) /lpf U Epithel Cells (Auto) (0-5) /lpf Urine Bacteria (Auto) (Negative) Adenovirus (PCR) Not Detected (NotDetected) B. pertussis DNA (PCR) Not Detected (NotDetected) B.parapertussis DNA PCR Not Detected (NotDetected) C. pneumoniae DNA (PCR) Not Detected (NotDetected) Coronavirus OC43 (PCR) Not Detected (NotDetected) Coronavirus HKU1 (PCR) Not Detected (NotDetected) Coronavirus 229E (PCR) Not Detected (NotDetected) SARS-CoV-2 (PCR) Not Detected (NotDetected) Coronavirus NL63 (PCR) Not Detected (NotDetected) Human Metapneumovir PCR Not Detected (NotDetected) Influenza Type A (PCR) Not Detected (NotDetected) Influenza Type B (PCR) Not Detected (NotDetected) M. pneumoniae (PCR) Not Detected (NotDetected) Parainfluenza 1 (PCR) Not Detected (NotDetected) Parainfluenza 2 (PCR) Not Detected (NotDetected) Parainfluenza 3 (PCR) Not Detected (NotDetected) Parainfluenza 4 (PCR) Not Detected (NotDetected) RSV (PCR) Not Detected (NotDetected) Entero/Rhino (PCR) DETECTED A* (NotDetected) 05/16/22 05/16/22 Range/Units 17:01 19:20 WBC (4.8-10.8) K/ul RBC (4.20-5.40) M/uL Hgb (12.0-16.0) g/dl Hct (37.0-47.0) % MCV (80.0-100.0) fL MCH (25.0-34.0) pg MCHC (32.0-36.0) g/dL RDW Std Deviation (36.4-46.3) fL RDW Coeff of Divya (11.5-14.5) % Plt Count (130-400) K/uL MPV (9.4-12.4) fL Immature Gran % (Auto) % Neut % (Auto) % Lymph % (Auto) % Harrison % (Auto) % Eos % (Auto) % Baso % (Auto) % Neut # (Auto) (1.40-6.50) K/uL Lymph # (Auto) (1.2-3.4) K/uL Harrison # (Auto) (0.11-0.59) K/uL Eos # (Auto) (0-0.50) K/uL Baso # (Auto) (0-0.2) K/uL Immature Gran # (Auto) (0.01-0.20) K/uL VBG pH 7.39 (7.36-7.41) VBG pCO2 50 (38-50) mmHg VBG pO2 15 mmHg VBG HCO3 30 mmol/L VBG O2 Saturation < 60.0 % VBG Base Excess 4.2 mEq/L Sodium (136-145) mmol/L Potassium (3.5-5.1) mmol/L Chloride (98-107) mmol/L Carbon Dioxide (21-32) mmol/L Anion Gap (3-11) BUN (6-23) mg/dl Creatinine (0.6-1.2) mg/dl Est Cr Clr Drug Dosing ml/min Est GFR ( Amer) ml/min Est GFR (Non-Af Amer) ml/min BUN/Creatinine Ratio (10-20) Glucose (70-99(Fasting)) mg/dl Calcium (8.5-10.1) mg/dl Total Bilirubin (0.2-1.0) mg/dl AST (13-39) U/L ALT (7-52) U/L Alkaline Phosphatase (34-104) U/L Troponin I High Sens (0-14) pg/ml Total Protein (6.0-8.3) gm/dl Albumin (3.4-5.0) gm/dl Globulin (2.5-4.0) gm/dl Albumin/Globulin Ratio (0.9-2) Urine Color Yellow Urine Appearance Clear (Clear) Urine pH 5.5 (4.5-7.5) Ur Specific Stow 1.006 (1.000-1.030) Urine Protein Negative (Negative) Urine Glucose (UA) Negative (Negative) Urine Ketones Trace H (Negative) Urine Blood Negative (Negative) Urine Nitrite Negative (Negative) Urine Bilirubin Negative (Negative) Urine Urobilinogen Negative (Negative) Ur Leukocyte Esterase Trace H (Negative) Urine WBC (Auto) 1-5 (0-5) /hpf Urine RBC (Auto) 0-4 (0-4) /hpf U Hyaline Cast (Auto) 1-5 (0-5) /lpf U Epithel Cells (Auto) 5-10 H (0-5) /lpf Urine Bacteria (Auto) Negative (Negative) Adenovirus (PCR) (NotDetected) B. pertussis DNA (PCR) (NotDetected) B.parapertussis DNA PCR (NotDetected) C. pneumoniae DNA (PCR) (NotDetected) Coronavirus OC43 (PCR) (NotDetected) Coronavirus HKU1 (PCR) (NotDetected) Coronavirus 229E (PCR) (NotDetected) SARS-CoV-2 (PCR) (NotDetected) Coronavirus NL63 (PCR) (NotDetected) Human Metapneumovir PCR (NotDetected) Influenza Type A (PCR) (NotDetected) Influenza Type B (PCR) (NotDetected) M. pneumoniae (PCR) (NotDetected) Parainfluenza 1 (PCR) (NotDetected) Parainfluenza 2 (PCR) (NotDetected) Parainfluenza 3 (PCR) (NotDetected) Parainfluenza 4 (PCR) (NotDetected) RSV (PCR) (NotDetected) Entero/Rhino (PCR) (NotDetected) Administered Medications Discontinued Medications Albuterol (Albut/Ipratrop 3mg/0.5mg Neb 3 Ml Vial) 3 ml INH NOW STA Stop: 05/16/22 14:02 Last Admin: 05/16/22 14:33 Dose: 3 ml Documented By: [id number] Albuterol (Albut/Ipratrop 3mg/0.5mg Neb 3 Ml Vial) 12 ml NEB ONE ONE; Protocol Stop: 05/16/22 16:51 Last Admin: 05/16/22 17:03 Dose: 12 ml Documented By: [email or web address] Azithromycin (Azithromycin 250 Mg Tab) 500 mg PO NOW STA Stop: 05/16/22 22:16 Last Admin: 05/16/22 22:37 Dose: 500 mg Documented By: QGV Guaifenesin (Guaifenesin 600 Mg Tabcr) 1,200 mg PO ONE STA Stop: 05/16/22 22:13 Last Admin: 05/16/22 22:37 Dose: 1,200 mg Documented By: QGV Magnesium Sulfate/Dextrose (Magnesium Sulfate / D5w) 1 gm in 100 mls @ 200 mls/hr IV Q30M GAUTAM Stop: 05/16/22 17:44 Last Infusion: 05/16/22 18:30 Dose: 0 mls/hr Documented By: [id number] Admin: 05/16/22 17:56 Dose: 200 mls/hr Documented By: [id number] Infusion: 05/16/22 17:54 Dose: 0 mls/hr Documented By: [id number] Admin: 05/16/22 16:58 Dose: 200 mls/hr Documented By: [id number] Sodium Chloride (Nss 1000ml) 1,000 mls @ 999 mls/hr IV .Q1H1M ONE Stop: 05/16/22 17:45 Last Infusion: 05/16/22 18:31 Dose: 0 mls/hr Documented By: [id number] Admin: 05/16/22 16:59 Dose: 999 mls/hr Documented By: [id number] Methylprednisolone (Methylprednisolone 125 Mg/2 Ml Vial) 125 mg IV NOW STA Stop: 05/16/22 16:46 Last Admin: 05/16/22 16:59 Dose: 125 mg Documented By: [id number] Ondansetron HCl (Ondansetron Inj 2 Mg/Ml 2 Ml Vial) 4 mg IV NOW STA Stop: 05/16/22 16:46 Last Admin: 05/16/22 16:59 Dose: 4 mg Documented By: [id number] Imaging Data Radiologist's Impression: Chest X-Ray 05/16/22 14:01 XR chest 2V PA/lateral CLINICAL HISTORY: Dyspnea. COMPARISON STUDY: Chest CT October 25, 2021. FINDINGS: Lung volumes are normal. There is no consolidation to suggest pneumonia. Calcified pulmonary nodules are again noted. There is no pneumothorax or pleural effusion. Cardiac size is normal. Mediastinal contours are normal. There is no evidence for pulmonary edema. IMPRESSION: No acute cardiopulmonary findings. No change in appearance of the chest. ACT 112: Negative or not required by law. Electronically signed by: Peyman Tate M.D. 05/16/2022 3:13 PM Discharge Plan Visit Data Chief Complaint: Shortness of Breath/Dyspnea Stated Complaint: SOB, DARK YELLOW PHLEGM ED Provider: Ambrose Shepherd Discharge Problem: Dyspnea on exertion, Diffuse wheezing, Cough Patient Disposition: Admitted As Inpatient Discharge Instructions Interventions: ED Discharge Assessment Last Done: 05/16/22 22:45
[2022-05-16] MEDS ORDERED: SODIUM CHLORIDE 0.9% 1000ML 1,000 ML IV ONE (16:45)
[2022-05-16] MEDS ORDERED: methylPREDNISolone 125 MG/2 ML VIAL IV STA (16:45)
[2022-05-16] MEDS ORDERED: ONDANSETRON INJ 2 MG/ML 2 ML VIAL IV STA (16:45)
[2022-05-16] MEDS ORDERED: ALBUT/IPRATROP 3MG/0.5MG NEB 3 ML VIAL NEB ONE (16:50)
[2022-05-16] MEDS: MAGNESIUM SULFATE / D5W 1 GM/100 ML BAG IV SCH ×2 (16:58→17:56)
[2022-05-16 17:21] LABS: Base Excess VBG 4.2 mEq/L; HCO3 VBG 30 mmol/L; Oxygen Saturation VBG < 60.0 %; PCO2 VBG 50 mmHg (38-50); PO2 VBG 15 mmHg; pH VBG 7.39 (7.36-7.41)
[2022-05-16 18:19] LABS: Adenovirus PCR Not Detected (NotDetected); Bordetella parapertussis PCR Not Detected (NotDetected); Bordetella pertussis PCR Not Detected (NotDetected); Chlamydia pneumoniae PCR Not Detected (NotDetected); Coronavirus 229E PCR Not Detected (NotDetected); Coronavirus CoV-2 (COVID19)PCR Not Detected (NotDetected); Coronavirus HKU1 PCR Not Detected (NotDetected); Coronavirus NL63 PCR Not Detected (NotDetected); Coronavirus OC43PCR Not Detected (NotDetected); Human Metapneumovirus PCR Not Detected (NotDetected); Influenza A PCR Not Detected (NotDetected); Influenza B PCR Not Detected (NotDetected); Mycoplasma pneumoniae PCR Not Detected (NotDetected); Parainfluenza Virus 1 PCR Not Detected (NotDetected); Parainfluenza Virus 2 PCR Not Detected (NotDetected); Parainfluenza Virus 3 PCR Not Detected (NotDetected); Parainfluenza Virus 4 PCR Not Detected (NotDetected); Respiratory Syncytial VirusPCR Not Detected (NotDetected)
[2022-05-16 18:25] LABS: Rhinovirus/Enterovirus PCR DETECTED (NotDetected)
[2022-05-16 19:52] LABS: Appearance Urine Clear (Clear); Bacteria Urine Automated Negative (Negative); Bilirubin Urine Negative (Negative); Blood Urine Negative (Negative); Color Urine Yellow; Glucose Urine UA Negative (Negative); Ketones Urine Trace (Negative); Leukocyte Esterase Urine Trace (Negative); Nitrite Urine Negative (Negative); Protein Urine Negative (Negative); RBC Urine Automated 0-4 /hpf (0-4); Specific Gravity Urine 1.006 (1.000-1.030); Urobilinogen Urine Negative (Negative); pH Urine 5.5 (4.5-7.5)
--- NOTE | 2022-05-16 20:51 | History & Physical Report ---
Date of Service May 16, 2022 Assessment & Plan (1) Dyspnea: Plan: 71 y/o female w/ PMHx of exercise-induced asthma, asymptomatic chronic granulomatous lung disease, and mild restrictive lung disease who presented w/ dyspnea since yesterday. Stable Clinically presented w/ yellow sputum and wheezing. Will treat as asthma exacerbation. Resp biofire pos for entero/rhinovirus which may be the trigger. Reassuring VBG pH 7.39. pCO2 50. Patient saw pulmonology 01/2022 and 03/2022 for chronic cough and hoarseness (ENT eval pending). Normal spirometry w/ mild restriction with decreased diffusion capacity (improves when adjusted for alveolar ventilation). s/p methylpred 125mg x1 and hour long neb treatment methylpred 40 IV BID PO azithro 5 day course Mucinex flutter valve and incentive spirom cxr not suggestive of pneumonia. stable calcified lung nodules Saturating 96 on room air (2) Sinus tachycardia: Plan: Likely secondary to albuterol treatments. Will change to Xopenex. (3) GERD (gastroesophageal reflux disease): Plan: May be contributory to chronic cough. Scheduled PPI while inpatient. (4) Anxiety: Plan: Continue home Lexapro (5) Granulomatous lung disease: Plan: Noted. Asymptomatic per last pulm visit. Plan HH diet. sq Lovenox full code med surg History of Present Illness Chief Complaint: dyspnea Primary Care Provider: KARLA Lemus 71 y/o female w/ PMHx of exercise-induced asthma, asymptomatic chronic granulomatous lung disease, and mild restrictive lung disease who presented w/ dyspnea since yesterday. She has yellow sputum, cough, and audible wheezes. Denies recent fever or chills. She had rhinorrhea yesterday. She had 2 episodes of emesis. Has orthopnea at baseline, no worsening. Not pleuritic. Exertional. Currently, feels much better after the breathing treatment, 60% at baseline. She last took her home maintenance inhalers yesterday. Rescue inhaler x 1 w/o relief. Denies recent illness. No home O2. 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 ED course: Methylpred 125. Duoneb 3ml, 12ml. 2mg IV mg. Allergies Allergy/AdvReac Type Severity Reaction Status Date / Time cefazolin Allergy Intermediate hives Verified 05/16/22 20:18 milnacipran [From Savella] Allergy Intermediate hives, Verified 05/16/22 20:18 nauseated duloxetine [From Cymbalta] AdvReac Severe Depression Verified 05/16/22 20:18 codeine AdvReac Mild NAUSEATED Verified 05/16/22 20:18 meperidine AdvReac Mild NAUSEATED Verified 05/16/22 20:18 morphine AdvReac Mild NASUEATED Verified 05/16/22 20:18 fabric softner Allergy Mild Unknown Uncoded 05/16/22 20:17 Home Medications Medication Instructions Recorded Confirmed Type albuterol sulfate 90 mcg/actuation 1 inh inhalation QID PRN shortness 10/05/20 05/16/22 Rx aerosol inhaler of breath or wheezing #8.5 grams diclofenac sodium 1 % topical gel 2 g topical QID PRN neck pain #100 10/05/20 05/16/22 Rx grams escitalopram oxalate 20 mg tablet 20 mg PO QAM #30 tabs 06/07/21 05/16/22 Rx fluticasone furoate 100 1 inh inhalation DAILY #60 ea 10/17/21 05/16/22 Rx mcg-vilanterol 25 mcg/dose inhalation powder (Breo Ellipta) albuterol sulfate 2.5 mg/3 mL 2.5 mg (3 mL) inhalation QID PRN 01/07/22 05/16/22 Rx (0.083 %) solution for nebulization shortness of breath or wheezing #90 mL montelukast 10 mg tablet 10 mg PO DAILY #30 tabs 02/01/22 05/16/22 Rx (Singulair) aluminum-mag hydroxide-simethicone 10 ml PO Q6H PRN .GI SYMPTOMS 03/14/22 05/16/22 History 200 mg-200 mg-20 mg/5 mL oral susp (Maalox Advanced) omeprazole magnesium 20 mg 20 mg PO DAILY PRN Acid Reflux 05/16/22 05/16/22 History tablet,delayed release (Prilosec OTC) azithromycin 250 mg tablet 250 mg PO HS #4 tabs 05/17/22 Rx prednisone 10 mg tablet 10 mg PO DIRECTED #12 tabs 05/17/22 Rx Past Med/Surg History Medical History Arthritis COVID-19 Depression Diverticulosis Granulomatous lung disease Hiatal hernia History of colon polyps Multiple pulmonary nodules Osteoporosis 03/24 dexa - osteopenia Peripheral edema Peripheral edema Surgical History History of bilateral tubal ligation History of cholecystectomy History of colonoscopy with polypectomy History of esophagogastroduodenoscopy (EGD) History of left knee surgery x5 History of low transverse section History of tonsillectomy and adenoidectomy History of tooth extraction all upper teeth/partial lower History of total hysterectomy with bilateral salpingo-oophorectomy (BSO) History of total left knee replacement (TKR) Hx of appendectomy Hx of laparoscopy Family History Sister Family history of diabetes mellitus Leukemia COPD (chronic obstructive pulmonary disease) Cancer Family hx colonic polyps Brother Family history of diabetes mellitus COPD (chronic obstructive pulmonary disease) Family hx colonic polyps Father Family history of diabetes mellitus Other No family history of adverse response to anesthesia Denies family history of Ovarian cancer Prostate cancer Myocardial infarction Breast cancer Colorectal cancer Social History Smoking Status: Former smoker Tobacco Type: Cigarettes Age Started Using Tobacco: 18; Age Quit Using Tobacco: 24; Second Hand Exposure: No; Hx Alcohol Use: No Hx Substance Use: No Preferred Language: Dutch Communication Ability: Effective Hearing Ability: Normal Track Layer Head Required: No Beliefs That Will Affect Care: None marital status: / Current Living Situation: Alone Current Living Situation Comment: currently mom is staying with pt current occupational status: retired How many Children do You have: 1 Feels Safe at Home: Yes Childhood Exposure to Second-Hand Smoke: Yes caffeine: Yes Dental Care, Regularly: Yes Physical Activity Frequency: 5-6 Times per Week Seatbelt Use: always Sunscreen Use: Yes Assistive Devices: None Review of Systems Review of Systems: All systems reviewed & are unremarkable except as noted in HPI & below mild headache while coughing. Intermittent chest twinge, chronic. Not an issue today. Physical Exam Physical Exam: General: Grossly A&O. NAD. Cooperative. HEENT: Atraumatic, normocephalic. EOMI. PERRL. Mild erythema of posterior oropharynx. On room air. Pulm: Mild insp coarseness, likely transmitted from airway as neck sounds similar. Mild end expiratory wheezes at mid and lower lung walker bilaterally. No accessory muscle use. Cardiac: RRR, -mrg. No LE edema. Abdominal: Nontender, nondistended, soft. Msk: Moving all extrem. Results & Data Results & Data Vital Signs (Past 12 Hours) Vital Signs Temp Pulse Resp BP Pulse Ox O2 Del Method O2 Flow Rate 05/16/22 19:30 123 H 18 143/69 H 96 Room Air 05/16/22 19:00 114 H 19 128/66 96 05/16/22 18:30 116 H 24 118/51 L 96 05/16/22 18:12 108 H 20 145/65 H 98 05/16/22 18:00 115 H 23 98 05/16/22 17:30 80 22 98 05/16/22 17:00 99 H 19 90 05/16/22 16:35 95 H 21 132/77 92 05/16/22 17:03 20 96 Room Air 05/16/22 16:53 94 H 05/16/22 14:41 115 H 22 95 Nebulizer 8 05/16/22 14:01 Room Air 05/16/22 13:59 36.3 C L 108 H 20 125/76 94 Room Air Laboratory Results Cardiac Enzymes 05/16/22 Range/Units 14:43 AST 14 (13-39) U/L Troponin I High Sens 5.7 (0-14) pg/ml CBC 05/16/22 Range/Units 14:43 WBC 12.52 H (4.8-10.8) K/ul RBC 5.07 (4.20-5.40) M/uL Hgb 15.4 (12.0-16.0) g/dl Hct 42.4 (37.0-47.0) % Plt Count 291 (130-400) K/uL Neut # (Auto) 9.39 H (1.40-6.50) K/uL Lymph # (Auto) 1.87 (1.2-3.4) K/uL [place] # (Auto) 1.01 H (0.11-0.59) K/uL Eos # (Auto) 0.16 (0-0.50) K/uL Baso # (Auto) 0.05 (0-0.2) K/uL Comprehensive Metabolic Panel 05/16/22 Range/Units 14:43 Sodium 136 (136-145) mmol/L Potassium 3.8 (3.5-5.1) mmol/L Chloride 103 (98-107) mmol/L Carbon Dioxide 26 (21-32) mmol/L BUN 11 (6-23) mg/dl Creatinine 0.71 (0.6-1.2) mg/dl Glucose 120 H (70-99(Fasting)) mg/dl Calcium 9.7 (8.5-10.1) mg/dl AST 14 (13-39) U/L ALT 13 (7-52) U/L Alkaline Phosphatase 104 (34-104) U/L Total Protein 7.9 (6.0-8.3) gm/dl Albumin 4.5 (3.4-5.0) gm/dl Intake and Output 05/16/22 05/16/22 05/16/22 06:59 14:59 22:59 Intake Total 1200 / 1200 Balance 1200 / 1200 Intake: IV 1200 / 1200 Magnesium Sulfate / D5w 1 gm In 200 / 200 100 ml @ 200 mls/hr IV Q30M [facility] Rx#:[id number] Sodium Chloride 0.9% 1000ML 1, 1000 / 1000 000 ml @ 999 mls/hr IV .Q1H1M ONE Rx#:[id number] Other: Weight 74 kg Weight Measurement Method Chair Scale Patient Weight 05/17/22 06:59 Weight 74 kg Diagnostic Findings Chest X-Ray 05/16/22 14:01 XR chest 2V PA/lateral CLINICAL HISTORY: Dyspnea. COMPARISON STUDY: Chest CT October 25, 2021. FINDINGS: Lung volumes are normal. There is no consolidation to suggest pneumonia. Calcified pulmonary nodules are again noted. There is no pneumothorax or pleural effusion. Cardiac size is normal. Mediastinal contours are normal. There is no evidence for pulmonary edema. IMPRESSION: No acute cardiopulmonary findings. No change in appearance of the chest. ACT 112: Negative or not required by law. Electronically signed by: Peyman Tate M.D. 05/16/2022 3:13 PM ECG Additional Comments: ecg w/ rate of 99, sinus. Code Status & VTE Plan Code Status full VTE Prophylaxis Plan VTE Prophylaxis will be ordered: Yes Supervising Physician Co-Signing Physician Notes Attending addendum: I have physically seen this patient, have supervised the medical residents activities, and agree with the H&P unless as otherwise noted. Assessment and Plan: Asthma exacerbation/granulomatous lung disease- Given methylprednisolone 125 mg IV and a hour-long DuoNeb treatment in the ED Methylprednisolone 40 mg IV every 12 hours Azithromycin 5 mg daily Guaifenesin extended release 12 mg p.o. twice daily Xopenex nebs 4 times daily Sinus tachycardia- Likely secondary to albuterol nebulizers, changing to Xopenex GERD- Takes omeprazole as needed in the outpatient setting, will change to pantoprazole 40 mg p.o. daily Anxiety- Continue Lexapro Remaining orders and notations as noted Resident Activity Tracking Resident Involvement: Resident Care Provided Care Provided: Adult Hospital Medicine
[2022-05-16] MEDS ORDERED: guaiFENesin 600 MG TABCR PO STA (22:12)
[2022-05-16] MEDS ORDERED: AZITHROMYCIN 250 MG TAB PO STA (22:15)
[2022-05-16] MEDS ORDERED: PANTOprazole 40 MG TAB PO PRN (22:58)
[2022-05-16] MEDS ORDERED: LEVALBUTEROL HCL 0.63 MG/3 ML NEB NEB ONE (23:34)
[2022-05-17] MEDS ORDERED: LEVALBUTEROL HCL 0.63 MG/3 ML NEB NEB SCH ×2 (01:00→07:00)
[2022-05-17] MEDS ORDERED: ACETAMINOPHEN 325 MG TAB PO PRN (06:47)
[2022-05-17] MEDS ORDERED: IPRATROPIUM BROMIDE NEB SOLN 0.02% 2.5 ML VIAL INH SCH (07:00)
[2022-05-17] MEDS ORDERED: XOPENEX/ATROVENT 0.63mg/0.5MG NEB COMBO NEB SCH (07:00)
[2022-05-17 07:25] LABS: Hematocrit (blood only) 37.2 % (37.0-47.0); Immature Granulocytes # (auto) 0.01 K/uL (0.01-0.20); Immature Granulocytes % (auto) 0.2 %; Lymphocytes # (auto) 0.54 K/uL (1.2-3.4); Lymphocytes % (auto) 8.8 %; Mean Corpuscular Hemoglobin 29.9 pg (25.0-34.0); Mean Corpuscular Hgb Conc 34.9 g/dL (32.0-36.0); Mean Corpuscular Volume 85.5 fL (80.0-100.0); Mean Platelet Volume 9.3 fL (9.4-12.4); Monocytes % (auto) 3.3 %; Neutrophils # (auto) 5.36 K/uL (1.40-6.50); Neutrophils % (auto) 87.7 %; Platelet Count 242 K/uL (130-400); RDW Coefficient of Variation 13.1 % (11.5-14.5); RDW Standard Deviation 40.8 fL (36.4-46.3); Red Blood Count 4.35 M/uL (4.20-5.40); White Blood Count 6.11 K/ul (4.8-10.8)
[2022-05-17 07:41] LABS: Calcium 9.2 mg/dl (8.5-10.1); Creatinine Clr Calc Pharmacy 85.2 ml/min; Est GFR (African American) 109.6 ml/min; Est GFR (Non-African American) 94.6 ml/min; Magnesium 2.4 mg/dl (1.7-2.4); Potassium 4.2 mmol/L (3.5-5.1)
[2022-05-17] MEDS ORDERED: guaiFENesin 600 MG TABCR PO SCH (09:00)
[2022-05-17] MEDS ORDERED: MONTELUKAST SODIUM 10 MG TABLET PO SCH (09:00)
[2022-05-17] MEDS ORDERED: methylPREDNISolone 40 MG in SYRINGE 0 ML IV SCH (09:00)
[2022-05-17] MEDS ORDERED: ESCITALOPRAM OXALATE 20 MG TAB PO SCH (09:00)
[2022-05-17] MEDS ORDERED: ENOXAPARIN INJ 40 MG/0.4 ML SYR SQ SCH (09:00)
--- NOTE | 2022-05-17 12:56 | Discharge Summary ---
Date of Service May 17, 2022 Admission HPI Per Admitting Provider 71 y/o female w/ PMHx of exercise-induced asthma, asymptomatic chronic granulomatous lung disease, and mild restrictive lung disease who presented w/ dyspnea since yesterday. She has yellow sputum, cough, and audible wheezes. Denies recent fever or chills. She had rhinorrhea yesterday. She had 2 episodes of emesis. Has orthopnea at baseline, no worsening. Not pleuritic. Exertional. Currently, feels much better after the breathing treatment, 60% at baseline. She last took her home maintenance inhalers yesterday. Rescue inhaler x 1 w/o relief. Denies recent illness. No home O2. 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 ED course: Methylpred 125. Duoneb 3ml, 12ml. 2mg IV mg. Admission Exam Per Admitting Provider General: Grossly A&O. NAD. Cooperative. HEENT: Atraumatic, normocephalic. EOMI. PERRL. Mild erythema of posterior oropharynx. On room air. Pulm: Mild insp coarseness, likely transmitted from airway as neck sounds similar. Mild end expiratory wheezes at mid and lower lung walker bilaterally. No accessory muscle use. Cardiac: RRR, -mrg. No LE edema. Abdominal: Nontender, nondistended, soft. Msk: Moving all extrem. Principal Diagnosis Asthma exacerbation 2/2 Entero/rhinovirus Discharge Exam Constitutional WD/WN, vitals as above ENMT external ear and nose normal, oropharynx normal Neck trachea midline, no thyromegaly Respiratory + cough and able to speak in complete sentences; no respiratory distress and no labored breathing mild end expiratory wheezes Cardiovascular RRR, no murmur, no edema Gastrointestinal (Abdomen) normal bowel sounds, soft, nontender, no hepatosplenomegaly Psychiatric A+Ox3, euthymic affect Discharge Data Allergies Allergy/AdvReac Type Severity Reaction Status Date / Time cefazolin Allergy Intermediate hives Verified 05/16/22 20:18 milnacipran [From Savella] Allergy Intermediate hives, Verified 05/16/22 20:18 nauseated duloxetine [From Cymbalta] AdvReac Severe Depression Verified 05/16/22 20:18 codeine AdvReac Mild NAUSEATED Verified 05/16/22 20:18 meperidine AdvReac Mild NAUSEATED Verified 05/16/22 20:18 morphine AdvReac Mild NASUEATED Verified 05/16/22 20:18 fabric softner Allergy Mild Unknown Uncoded 05/16/22 20:17 Consultations 05/16/22 20:15 ED Decision to Admit Stat Ordered Studies XR chest 2V PA/lateral CLINICAL HISTORY: Dyspnea. COMPARISON STUDY: Chest CT October 25, 2021. FINDINGS: Lung volumes are normal. There is no consolidation to suggest pneumonia. Calcified pulmonary nodules are again noted. There is no pneumothorax or pleural effusion. Cardiac size is normal. Mediastinal contours are normal. There is no evidence for pulmonary edema. IMPRESSION: No acute cardiopulmonary findings. No change in appearance of the chest. Abnormal lab results 05/16/22 05/16/22 05/16/22 Range/Units 14:43 14:43 16:48 WBC 12.52 H (4.8-10.8) K/ul MCHC 36.3 H (32.0-36.0) g/dL MPV 9.2 L (9.4-12.4) fL Neut # (Auto) 9.39 H (1.40-6.50) K/uL Lymph # (Auto) (1.2-3.4) K/uL [place] # (Auto) 1.01 H (0.11-0.59) K/uL Creatinine (0.6-1.2) mg/dl Glucose 120 H (70-99(Fasting)) mg/dl Fasting Glucose (70-99) mg/dl Total Bilirubin 1.1 H (0.2-1.0) mg/dl Urine Ketones (Negative) Ur Leukocyte Esterase (Negative) U Epithel Cells (Auto) (0-5) /lpf Entero/Rhino (PCR) DETECTED A* (NotDetected) 05/16/22 05/17/22 05/17/22 Range/Units 19:20 06:14 06:14 WBC (4.8-10.8) K/ul MCHC (32.0-36.0) g/dL MPV 9.3 L (9.4-12.4) fL Neut # (Auto) (1.40-6.50) K/uL Lymph # (Auto) 0.54 L (1.2-3.4) K/uL [place] # (Auto) (0.11-0.59) K/uL Creatinine 0.57 L (0.6-1.2) mg/dl Glucose (70-99(Fasting)) mg/dl Fasting Glucose 159 H (70-99) mg/dl Total Bilirubin (0.2-1.0) mg/dl Urine Ketones Trace H (Negative) Ur Leukocyte Esterase Trace H (Negative) U Epithel Cells (Auto) 5-10 H (0-5) /lpf Entero/Rhino (PCR) (NotDetected) Hospital Course (1) Rhinovirus: 71 y/o female w/ PMHx of exercise-induced asthma, asymptomatic chronic granulomatous lung disease, and mild restrictive lung disease who presented w/ dyspnea x2-3 days and worsening yesterday. Patient saw pulmonology 01/2022 and 03/2022 for chronic cough and hoarseness (ENT eval pending). Normal spirometry w/ mild restriction with decreased diffusion capacity (improves when adjusted for alveolar ventilation). s/p methylpred 125mg x1 and hour long neb treatment in ER Treated with methylpred 40 IV BID PO azithro had 500mg yesterday. Mucinex flutter valve and incentive spirometer cxr not suggestive of pneumonia. stable calcified lung nodules Saturating 100% on room air (2) Dyspnea on exertion: Improving See above (3) Diffuse wheezing: Improving see above (4) Sinus tachycardia: In the ED after albuterol treatments Changed albuterol to Xopenex and has had normal heart rates since (5) Hoarseness: Patient follows with pulm and has an appointment already set up with ENT (6) Granulomatous lung disease: - Patient follows with Dr. Street Per pulmonology note - "Pulmonary nodules: With the calcified nodules in calcifications noted within the spleen, this represents prior exposure to endemi c fungus and is consistent with prior granulomatous disease. No additional radiographic surveillance or follow-up is needed. These nodules are not causing any symptoms at this point time." Total Time Total Time Spent Total Time Spent (In Minutes): 35 Discharge Plan Discharge Items Patient Disposition: Home - Self-Care Reason For Visit: COPD EXACERBATION Discharge Diagnosis: Asthma exacerbation 2/2 entero/rhinovirus Condition on Discharge: Good Activity: Resume your previous activity Exercise/Sports: Gradually increase as tolerated Weightbearing: Full weightbearing Non-emergency contact: Primary Care Provider Call non-emergency contact if: you have any medication questions and your temperature is above 101 Follow-up/Referrals: Lillian Cabrera CRNP [Primary Care Provider] - Diet: Heart Healthy Addtl Attending Provider Instructions: You were admitted with shortness of breath, cough and congestion. You were found to have entero/rhinovirus and also felt this was exacerbating your asthma. You were treated with breathing treatments and steroids. You also were started on Zithromax 500mg in the ED and will be given a rx for 250mg one daily for 4 days starting tonight. Also will rx steroids in a taper dose. Keep follow up pulmonology appointments and also ENT appointment. Pending Studies at Discharge: No Stand-Alone Forms: My [facility] Medications and DC Order Prescriptions: New azithromycin 250 mg Tablet 250 mg PO HS Qty: 4 0RF prednisone 10 mg tablet 10 mg PO DIRECTED Qty: 12 0RF Rx Instructions: 3 pills for 2 days 2 pills for 2 days then 1 pill for 2 days and stop Continued escitalopram oxalate 20 mg tablet 20 mg PO QAM Qty: 30 11RF fluticasone furoate-vilanterol [Breo Ellipta] 100-25 mcg/dose blister with device 1 inh inhalation DAILY Qty: 60 5RF montelukast [Singulair] 10 mg tablet 10 mg PO DAILY Qty: 30 2RF albuterol sulfate 90 mcg/actuation HFA aerosol inhaler 1 inh inhalation QID PRN (Reason: shortness of breath or wheezing) Qty: 8.5 3RF diclofenac sodium 1 % gel 2 g topical QID PRN (Reason: neck pain) Qty: 100 3RF Rx Instructions: apply to neck as needed albuterol sulfate 2.5 mg /3 mL (0.083 %) solution for nebulization 2.5 mg inhalation QID PRN (Reason: shortness of breath or wheezing) Qty: 90 3RF alum-mag hydroxide-simeth [Maalox Advanced] 200-200-20 mg/5 mL suspension 10 ml PO Q6H PRN (Reason: .GI SYMPTOMS) omeprazole magnesium [Prilosec OTC] 20 mg tablet,delayed release (DR/EC) 20 mg PO DAILY PRN (Reason: Acid Reflux) Discharge Orders: Discharge Order (Routine); Ordered 05/17/22 Ordered By: Kayy Rod Admission Data Admit Date/Time: 05/16/22 21:31 Attending Provider: Bryson Riggs Admit Provider: Trent Lundberg Primary Care Provider: Lillian Cabrera Other Providers: Trent Lundberg Coding Level of Care Code 91251 INP/OBS DISCH >30 MIN Diagnoses Rhinovirus B34.8 Dyspnea on exertion R06.09 Diffuse wheezing R06.2 Sinus tachycardia R00.0 Hoarseness R49.0 Granulomatous lung disease J84.10
[2022-05-17] MEDS ORDERED: AZITHROMYCIN 250 MG TAB PO SCH (21:00)
--- NOTE | 2022-05-18 01:36 | Electrocardiogram Report ---
Test Reason : Blood Pressure : / mmHG Vent. Rate : 099 BPM Atrial Rate : 099 BPM P-R Int : 134 ms QRS Dur : 080 ms QT Int : 350 ms P-R-T Axes : 074 063 057 degrees QTc Int : 449 ms Normal sinus rhythm Possible Left atrial enlargement Borderline ECG When compared with ECG of 06-DEC-2019 13:08, No significant change was found Confirmed by Bebeto Sanchez ([id number]) on 05/18/2022 1:35:56 AM Referred By: SELF Confirmed By:Bebeto Sanchez
--- NOTE | 2022-05-18 21:36 | Billing Data ---
Date of Service May 18, 2022 Coding Level of Care Code 00256 INT INP/OBS CARE
== END 2022-05-17 15:37 | disposition home or self-care (01) | DRG 203 ==
LOC: ED 13:55 → SUATTDRO 21:31 → 3E 21:31

== ENCOUNTER 2022-10-07 15:53 | Inpatient (IN) ==
[2022-10-07] MEDS ORDERED: IOVERSOL 350 MG 125mL Prefilled Syringe IV ONE (16:01)
--- NOTE | 2022-10-07 16:13 | Emergency Department Note ---
Impression & Plan Slurred speech, Numbness and tingling, Weakness ED Provider Note NAME: RACHEL STERN AGE: 71 SEX: F : 1950 ARRIVES VIA: Ambulance INFORMANT: Patient ED PROVIDER(S): Eastno Noyola DO CHIEF COMPLAINT: right sided facial droop and right leg and arm weakness HPI: Patient is a 71-year-old female with a past medical history of mild cognitive impairment, anxiety, insomnia, COPD who presents to the ER for right arm and right leg being flaccid and facial droop with slurred speech. Symptoms started sometime after 11 AM. Last known well was around 11. Patient admits to a mild headache. No change in vision. No chest pain or shortness of breath. She notes the weakness in her arm and leg have now almost resolved and her arm does not feel as heavy as it did. She notes she still has trouble talking. No dysuria, urgency, or frequency. No other exacerbating or remitting factors. Per report from EMS when they picked her up she was flaccid on the right side with a facial droop. PAST MEDICAL HISTORY:See Below PAST SURGICAL HISTORY:See Below FAMILY HISTORY:See Below SOCIAL HISTORY:See Below HOME MEDICATIONS:See Below ALLERGIES:See Below VITALS:See Below PHYSICAL EXAMINATION: GENERAL: Sitting up in bed, alert, well appearing, well nourished, no distress, non-toxic EYE EXAM: normal conjunctiva. PERRL and EOM's grossly intact. OROPHARYNX: no exudate, no erythema, lips, buccal mucosa, and tongue normal and mucous membranes are moist NECK: supple, no nuchal rigidity, no adenopathy, non-tender LUNGS: Clear to auscultation. Normal chest wall mechanics HEART: no murmurs, S1 normal and S2 normal ABDOMEN: abdomen soft, non-tender, normo-active bowel sounds, no masses, no rebound or guarding. UPPER EXTREMITIES: upper extremities are grossly normal. LOWER EXTREMITIES: No pitting edema. NEURO EXAM: Normal sensorium, slightly slurred speech with mild right-sided facial droop, no weakness of arms, no weakness of legs. No drift. Finger to nose intact. Gross sensation intact. MEDICAL DECISION MAKING: Patient is a 71-year-old female who presents ER for above-stated complaint. Brought in by EMS per the report she had right-sided upper and lower extremity weakness as well as a facial droop. Upon arrival she has no weakness in the right upper or right lower. Does have facial droop and slurred speech. Patient was taken immediately to CAT scan. She is not a TNK candidate due to last known well around 11 AM. Labs show no significant leukocytosis or anemia. INR unremarkable. BMP along LFTs bilirubin was unremarkable. Troponin was negative. UA was clean. CT angios of the head and neck were negative. Patient's symptoms continue to improve. Discussed with the hospitalist Dr. Jameson Lombardo. Patient was given rectal aspirin. Admitted for further work- up to his service. Stroke alert was called to facilitate obtaining CT angios for possible LVO which was not present per radiology. Triage Nursing notes reviewed. Limited review of prior medical records performed Vital Signs: reviewed and remarkable for no significant abnormalities Differential diagnosis: Infection, dehydration, metabolic abnormality, hypo/hyperglycemia, electrolyte disturbance, anemia, hypoxia, cardiac sources, intracerebral event, toxicologic, neurologic, as well as other pathologies. ER treatment provided: See below Diagnostics interpreted by me include EKG and cardiac monitoring as listed below: -Cardiac Monitoring: An order was placed for continuous cardiac monitoring. The monitor shows a rate of 85 with sinus rhythm. -ECG: Sinus rhythm rate 88 Normal axis No PVCs QTc 471 -Laboratory studies:Interpreted by me as stated above in MDM and shown below. Imaging studies: Xrays: As interpreted by me:none CTs show: CT of the head per my read showed no obvious large mass CT angio of the head and neck were negative Consultation(s): As described in MDM Procedures:none Critical Care: None Past Med/Surg History Medical History Anxiety Arthritis Asthma Chronic obstructive pulmonary disease Depression Diverticulosis Dyspnea on exertion GERD (gastroesophageal reflux disease) Hiatal hernia History of colon polyps History of COVID-19 Inpatient hospitalization within last 30 days Multiple pulmonary nodules Nausea and vomiting after administration of anesthetic agent Osteoporosis Peripheral edema Rhinovirus Sinus tachycardia Surgical History History of bilateral tubal ligation History of cholecystectomy History of colonoscopy with polypectomy History of esophagogastroduodenoscopy (EGD) History of left knee surgery History of low transverse section History of tonsillectomy and adenoidectomy History of tooth extraction History of total hysterectomy with bilateral salpingo-oophorectomy (BSO) History of total left knee replacement (TKR) Hx of appendectomy Hx of laparoscopy Family History Sister Family history of diabetes mellitus Leukemia COPD (chronic obstructive pulmonary disease) Cancer Family hx colonic polyps Adverse anesthesia outcome Environmental allergies Brother Family history of diabetes mellitus COPD (chronic obstructive pulmonary disease) Family hx colonic polyps Asthma Father Family history of diabetes mellitus Hypertension Asthma Mother Environmental allergies Other No family history of adverse response to anesthesia No family history of bleeding disorder Denies family history of Ovarian cancer Prostate cancer Myocardial infarction Breast cancer Colorectal cancer Social History Smoking Status: Never smoker Tobacco Type: Cigarettes Age Started Using Tobacco: 18; Age Quit Using Tobacco: 24; Second Hand Exposure: No; Do You Dip or Chew Tobacco: No; Hx Alcohol Use: No Hx Substance Use: No Preferred Language: Tamazight Communication Ability: Effective Visual Impairment: Limited Hearing Ability: Normal Sampling Expert Required: No Beliefs That Will Affect Care: Anabaptism marital status: / Current Living Situation: Alone current occupational status: retired How many Children do You have: 1 Feels Safe at Home: Yes Childhood Exposure to Second-Hand Smoke: Yes Diet: regular caffeine: Yes during the past year weight has: remained stable Dental Care, Regularly: Yes Physical Activity Frequency: 5-6 Times per Week Seatbelt Use: always Sunscreen Use: Yes Assistive Devices: Glasses Allergies Allergies Allergy/AdvReac Type Severity Reaction Status Date / Time cefazolin Allergy Intermediate hives Verified 10/07/22 16:23 milnacipran [From Savella] Allergy Intermediate hives, Verified 10/07/22 16:23 nauseated duloxetine [From Cymbalta] AdvReac Severe Depression Verified 10/07/22 16:23 codeine AdvReac Mild NAUSEATED Verified 10/07/22 16:23 meperidine AdvReac Mild NAUSEATED Verified 10/07/22 16:23 morphine AdvReac Mild NASUEATED Verified 10/07/22 16:23 fabric softner Allergy Mild Unknown Uncoded 10/07/22 16:23 Home Meds Home Medications Medication Instructions Recorded Confirmed omeprazole magnesium 20 mg 20 mg PO DAILY PRN Acid Reflux 05/16/22 10/07/22 tablet,delayed release (Prilosec OTC) montelukast 10 mg tablet 10 mg PO QAM 05/27/22 10/07/22 (Singulair) tobramycin 0.3 %-dexamethasone 0.1 1 drp OPR BID 10/07/22 10/07/22 % eye drops,suspension Previous Rx's Medication Instructions Recorded albuterol sulfate 90 mcg/actuation 1 inh inhalation QID PRN shortness 10/05/20 aerosol inhaler of breath or wheezing #8.5 grams albuterol sulfate 2.5 mg/3 mL 2.5 mg (3 mL) inhalation QID PRN 01/07/22 (0.083 %) solution for nebulization shortness of breath or wheezing #90 mL escitalopram oxalate 20 mg tablet 20 mg PO QAM #30 tabs 06/11/22 chlorpheniramine maleate 4 mg 4 mg PO Q12H 30 days #60 tabs 08/13/22 tablet (Allergy Relief (chlorpheniramine)) fluticasone furoate 100 1 inh inhalation DAILY #60 ea 08/13/22 mcg-vilanterol 25 mcg/dose inhalation powder (Breo Ellipta) fluticasone propionate 50 1 spray intranasal BID #18.2 mL 08/13/22 mcg/actuation nasal spray,suspension (Flonase Allergy Relief) sodium chloride, sodium See Rx Instructions .Route 08/13/22 bicarb-nasal rinse squeeze bottle .COMPLEX #50 ea with packet (Neilmed Sinus Rinse Complete with packet) buspirone 10 mg tablet 10 mg PO BID PRN anxiety #30 tabs 08/22/22 Results & Data (ED) Vital Signs Vital Signs - 24 hr 10/07/22 16:07 10/07/22 16:07 10/07/22 16:20 Temperature 36.8 C Temperature Source Oral Pulse Rate 80 Pulse Rate [Apical] 76 Pulse Rate from SpO2 Sensor Respiratory Rate 16 14 Respiratory Effort / Characteristics Non-Labored Respiratory Depth Normal Blood Pressure 171/88 H Blood Pressure Mean 115 Pulse Oximetry 95 95 Oxygen Delivery Method Room Air Room Air Room Air Oxygen Flow Rate 0 Sepsis Recent Fever Within 48 Hours No Sepsis New/Unexplained Change in Mental Status No Sepsis Action Taken by Nursing No Action Required 10/07/22 16:28 10/07/22 16:07 10/07/22 16:08 Temperature Temperature Source Pulse Rate 83 86 Pulse Rate [Apical] Pulse Rate from SpO2 Sensor Respiratory Rate 23 Respiratory Effort / Characteristics Respiratory Depth Blood Pressure 171/88 H Blood Pressure Mean 115 Pulse Oximetry Oxygen Delivery Method Oxygen Flow Rate Sepsis Recent Fever Within 48 Hours Sepsis New/Unexplained Change in Mental Status Sepsis Action Taken by Nursing 10/07/22 16:08 10/07/22 16:10 10/07/22 16:20 Temperature Temperature Source Pulse Rate 89 89 75 Pulse Rate [Apical] Pulse Rate from SpO2 Sensor 89 Respiratory Rate 14 18 14 Respiratory Effort / Characteristics Respiratory Depth Blood Pressure Blood Pressure Mean Pulse Oximetry 91 Oxygen Delivery Method Oxygen Flow Rate Sepsis Recent Fever Within 48 Hours Sepsis New/Unexplained Change in Mental Status Sepsis Action Taken by Nursing 10/07/22 16:30 10/07/22 19:25 10/07/22 20:13 Temperature Temperature Source Pulse Rate 77 73 73 Pulse Rate [Apical] Pulse Rate from SpO2 Sensor Respiratory Rate 23 20 20 Respiratory Effort / Characteristics Respiratory Depth Blood Pressure 149/83 H 161/84 H Blood Pressure Mean 105 109 Pulse Oximetry 96 94 Oxygen Delivery Method Room Air Room Air Oxygen Flow Rate Sepsis Recent Fever Within 48 Hours Sepsis New/Unexplained Change in Mental Status Sepsis Action Taken by Nursing Laboratory Data 10/07/22 14:25 10/07/22 14:25 Lab Results 10/07/22 10/07/22 10/07/22 Range/Units 14:25 14:25 14:25 WBC 5.17 (4.8-10.8) K/ul RBC 4.50 (4.20-5.40) M/uL Hgb 13.2 (12.0-16.0) g/dl POC Hgb (12.0-16.0) g/dl Hct 38.5 (37.0-47.0) % POC Hct (37-47) % MCV 85.6 (80.0-100.0) fL MCH 29.3 (25.0-34.0) pg MCHC 34.3 (32.0-36.0) g/dL RDW Std Deviation 40.0 (36.4-46.3) fL RDW Coeff of Divya 12.9 (11.5-14.5) % Plt Count 230 (130-400) K/uL MPV 9.2 L (9.4-12.4) fL Immature Gran % (Auto) 0.4 % Neut % (Auto) 58.7 % Lymph % (Auto) 26.1 % [place] % (Auto) 9.3 % Eos % (Auto) 4.1 % Baso % (Auto) 1.4 % Neut # (Auto) 3.04 (1.40-6.50) K/uL Lymph # (Auto) 1.35 (1.2-3.4) K/uL [place] # (Auto) 0.48 (0.11-0.59) K/uL Eos # (Auto) 0.21 (0-0.50) K/uL Baso # (Auto) 0.07 (0-0.2) K/uL Immature Gran # (Auto) 0.02 (0.01-0.20) K/uL PT 10.7 (9.0-12.0) Seconds INR 1.0 (0.9-1.1) APTT 21.5 (21.0-31.0) Seconds PTT Ratio 0.8 POC Sodium (135-144) mmol/L Sodium 136 (136-145) mmol/L POC Potassium (3.3-5.0) mmol/L Potassium 3.8 (3.5-5.1) mmol/L POC Chloride (101-112) mmol/L Chloride 105 (98-107) mmol/L Carbon Dioxide 26 (21-32) mmol/L POC Total CO2 (24-31) mmol/L Anion Gap 5 (3-11) POC Anion Gap (16-25) mmol/L POC BUN (7-18) mg/dl BUN 12 (6-23) mg/dl Creatinine 0.73 (0.6-1.2) mg/dl POC Creatinine (0.6-1.3) mg/dl Est Cr Clr Drug Dosing Not Reportable Est GFR ( Amer) 97.4 ml/min Est GFR (Non-Af Amer) 84.0 ml/min BUN/Creatinine Ratio 16.4 (10-20) Glucose 93 (70-99(Fasting)) mg/dl POC Glucose (70-99) mg/dl POC Glucose (other) (70-99) mg/dl Calcium 8.6 (8.6-10.3) mg/dl POC Ioniz Calcium Krystal (1.12-1.32) mmol/l Magnesium 2.1 (1.7-2.4) mg/dl Total Bilirubin 0.5 (0.2-1.0) mg/dl AST 20 (13-39) U/L ALT 19 (7-52) U/L Alkaline Phosphatase 94 (34-104) U/L Troponin I High Sens 3.6 (0-14) pg/ml Total Protein 6.4 (6.0-8.3) gm/dl Albumin 3.8 (3.4-5.0) gm/dl Globulin 2.6 (2.5-4.0) gm/dl Albumin/Globulin Ratio 1.5 (0.9-2) Urine Color Urine Appearance (Clear) Urine pH (4.5-7.5) Ur Specific [place] (1.000-1.030) Urine Protein (Negative) Urine Glucose (UA) (Negative) Urine Ketones (Negative) Urine Blood (Negative) Urine Nitrite (Negative) Urine Bilirubin (Negative) Urine Urobilinogen (Negative) Ur Leukocyte Esterase (Negative) 10/07/22 10/07/22 10/07/22 Range/Units 16:23 16:31 Unknown WBC (4.8-10.8) K/ul RBC (4.20-5.40) M/uL Hgb (12.0-16.0) g/dl POC Hgb 12.9 (12.0-16.0) g/dl Hct (37.0-47.0) % POC Hct 38 (37-47) % MCV (80.0-100.0) fL MCH (25.0-34.0) pg MCHC (32.0-36.0) g/dL RDW Std Deviation (36.4-46.3) fL RDW Coeff of Divya (11.5-14.5) % Plt Count (130-400) K/uL MPV (9.4-12.4) fL Immature Gran % (Auto) % Neut % (Auto) % Lymph % (Auto) % [place] % (Auto) % Eos % (Auto) % Baso % (Auto) % Neut # (Auto) (1.40-6.50) K/uL Lymph # (Auto) (1.2-3.4) K/uL [place] # (Auto) (0.11-0.59) K/uL Eos # (Auto) (0-0.50) K/uL Baso # (Auto) (0-0.2) K/uL Immature Gran # (Auto) (0.01-0.20) K/uL PT (9.0-12.0) Seconds INR (0.9-1.1) APTT (21.0-31.0) Seconds PTT Ratio POC Sodium 139 (135-144) mmol/L Sodium (136-145) mmol/L POC Potassium 3.9 (3.3-5.0) mmol/L Potassium (3.5-5.1) mmol/L POC Chloride 104 (101-112) mmol/L Chloride (98-107) mmol/L Carbon Dioxide (21-32) mmol/L POC Total CO2 25 (24-31) mmol/L Anion Gap (3-11) POC Anion Gap 15.0 L (16-25) mmol/L POC BUN 11 (7-18) mg/dl BUN (6-23) mg/dl Creatinine (0.6-1.2) mg/dl POC Creatinine 0.7 (0.6-1.3) mg/dl Est Cr Clr Drug Dosing Est GFR ( Amer) ml/min Est GFR (Non-Af Amer) ml/min BUN/Creatinine Ratio (10-20) Glucose (70-99(Fasting)) mg/dl POC Glucose 105 H (70-99) mg/dl POC Glucose (other) 97 (70-99) mg/dl Calcium (8.6-10.3) mg/dl POC Ioniz Calcium Krystal 1.12 (1.12-1.32) mmol/l Magnesium (1.7-2.4) mg/dl Total Bilirubin (0.2-1.0) mg/dl AST (13-39) U/L ALT (7-52) U/L Alkaline Phosphatase (34-104) U/L Troponin I High Sens (0-14) pg/ml Total Protein (6.0-8.3) gm/dl Albumin (3.4-5.0) gm/dl Globulin (2.5-4.0) gm/dl Albumin/Globulin Ratio (0.9-2) Urine Color Yellow Urine Appearance Clear (Clear) Urine pH 7.5 (4.5-7.5) Ur Specific [place] 1.022 (1.000-1.030) Urine Protein Negative (Negative) Urine Glucose (UA) Negative (Negative) Urine Ketones Negative (Negative) Urine Blood Negative (Negative) Urine Nitrite Negative (Negative) Urine Bilirubin Negative (Negative) Urine Urobilinogen Negative (Negative) Ur Leukocyte Esterase Negative (Negative) Administered Medications Discontinued Medications Aspirin (Aspirin 300 Mg Supp) 300 mg [place] ONE ONE Stop: 10/07/22 17:06 Last Admin: 10/07/22 18:17 Dose: Not Given Documented By: MEGA Aspirin (Aspirin 81 Mg Chew) 324 mg PO NOW STA Stop: 10/07/22 18:30 Last Admin: 10/07/22 19:23 Dose: 324 mg Documented By: SILVESTRE Ioversol (Ioversol 350 Mg 125ml Prefilled Syringe) 119 ml IV ONCE ONE Stop: 10/07/22 16:02 Last Admin: 10/07/22 16:02 Dose: 119 ml Documented By: LAMBERT Imaging Data Radiologist's Impression: Chest X-Ray 10/07/22 15:47 SINGLE VIEW CHEST CLINICAL HISTORY: Neurological deficit. Stroke like symptoms. FINDINGS: An AP, portable, upright chest radiographs are compared to study dated 05/16/2022 and correlated with chest CT dated 10/25/2021. The examination is degraded by portable technique and apical lordotic positioning. The cardiomediastinal silhouette is unremarkable. There are low lung volumes with mild bibasilar atelectasis. Scattered calcified granulomas are unchanged. No airspace consolidation or large pleural effusion is identified. No pneumothorax is seen. The skeletal structures are osteopenic. The bony thorax is grossly intact. Cholecystectomy clips are seen in the right upper quadrant. IMPRESSION: Low lung volumes with no active disease in the chest. ACT 112: Negative or not required by law. Electronically signed by: Law Witt M.D. 10/07/2022 5:[address] 10/07/22 15:[address] OF THE BRAIN; CT ANGIOGRAM OF THE BRAIN; CT ANGIOGRAM OF THE NECK CLINICAL HISTORY: Left facial droop. COMPARISON STUDY: CT of the brain dated 10/29/2009. TECHNIQUE: Unenhanced axial CT scan of the brain is performed. Subsequently, following the IV administration of 119 of Optiray 320, CT angiogram of the head and neck was performed from the aortic arch to the vertex. Images are reviewed in the axial, sagittal, and coronal planes. 3-D MIPS images are created and assessed. IV contrast was administered without complication. All measurements were calculated based on NASCET criteria. A dose lowering technique was utilized adhering to the principles of ALARA. CT DOSE: 1069.87 mGy.cm FINDINGS: Brain parenchyma: There is age-related involutional change noting minimal microangiopathic disease. There is no hemorrhage, mass effect, or evidence of acute territorial ischemia by CT criteria. There is no evidence of enhancing mass lesion on the angiogram phase images. The ventricles, sulci, and cisterns are prominent secondary to involutional change. Hernández-white matter differentia tion is preserved. No extra-axial fluid collection is seen. Thoracic aorta: Visualized portions of the thoracic aorta are normal in caliber. The aortic arch demonstrates standard 3-vessel anatomy. Right carotid arterial system: The right common carotid artery is widely patent, as are the right internal and external carotid arteries. The distal right internal carotid artery demonstrates a beaded appearance. Left carotid arterial system: The left common carotid artery is widely patent, as are the left internal and external carotid arteries. Vertebral arteries: The vertebral arteries are widely patent bilaterally and codominant. Subclavian arteries: Widely patent bilaterally. Intracranial vasculature: There is atherosclerotic calcification of the cavernous carotid arteries. The internal carotid arteries are patent at the skull base, as are the anterior and middle cerebral arteries bilaterally. The vertebrobasilar system and posterior cerebral arteries are widely patent. The vertebral arteries are codominant. There is a right posterior communicating artery. There is no aneurysm, high-grade stenosis, or focal vessel cut off seen throughout the intracranial circulation. Jugular veins: Patent bilaterally. Dural sinuses: Patent. Lung apices: Partially visualized upper lobe lung parenchyma appears clear. Soft tissues: The visualized pharyngeal soft tissues are normal in appearance noting angiographic phase technique. The oropharyngeal airway appears widely patent. The salivary and thyroid glands are normal in appearance. No cervical lymphadenopathy is seen. Skeletal structures: The skeletal structures are osteopenic. The calvarium appears intact. The cervical spine is maintained noting multilevel spondylosis. Orbits: The bony orbits are intact. Orbital contents are normal as visualized. Sinuses and mastoids: The paranasal sinuses are clear. The mastoid air cells are well pneumatized. IMPRESSION: 1. There is no hemorrhage, mass effect, or evidence of acute territorial isc hemia by CT criteria. 2. Unremarkable CT angiogram of the brain. 3. The distal right internal carotid artery demonstrates a beaded appearance suggesting fibromuscular dysplasia. 4. Otherwise unremarkable CT angiogram of the neck. ACT 112: Negative or not required by law. Electronically signed by: Law Witt M.D. 10/07/2022 4:18 PM Head CTA 10/07/22 15:[address] OF THE BRAIN; CT ANGIOGRAM OF THE BRAIN; CT ANGIOGRAM OF THE NECK CLINICAL HISTORY: Left facial droop. COMPARISON STUDY: CT of the brain dated 10/29/2009. TECHNIQUE: Unenhanced axial CT scan of the brain is performed. Subsequently, following the IV administration of 119 of Optiray 320, CT angiogram of the head and neck was performed from the aortic arch to the vertex. Images are reviewed in the axial, sagittal, and coronal planes. 3-D MIPS images are created and assessed. IV contrast was administered without complication. All measurements were calculated based on NASCET criteria. A dose lowering technique was utilized adhering to the principles of ALARA. CT DOSE: 1069.87 mGy.cm FINDINGS: Brain parenchyma: There is age-related involutional change noting minimal microangiopathic disease. There is no hemorrhage, mass effect, or evidence of acute territorial ischemia by CT criteria. There is no evidence of enhancing mass lesion on the angiogram phase images. The ventricles, sulci, and cisterns are prominent secondary to involutional change. Hernández-white matter differentiation is preserved. No extra-axial fluid collection is seen. Thoracic aorta: Visualized portions of the thoracic aorta are normal in caliber. The aortic arch demonstrates standard 3-vessel anatomy. Right carotid arterial system: The right common carotid artery is widely patent, as are the right internal and external carotid arteries. The distal right internal carotid artery demonstrates a beaded appearance. Left carotid arterial system: The left common carotid artery is widely patent, as are the left internal and external carotid arteries. Vertebral arteries: The vertebral arteries are widely patent bilaterally and codominant. Subclavian arteries: Widely patent bilaterally. Intracranial vasculature: There is atherosclerotic calcification of the cavernous carotid arteries. The internal carotid arteries are patent at the skull base, as are the anterior and middle cerebral arteries bilaterally. The vertebrobasilar system and posterior cerebral arteries are widely patent. The vertebral arteries are codominant. There is a right posterior communicating artery. There is no aneurysm, high-grade stenosis, or focal vessel cut off seen throughout the intracranial circulation. Jugular veins: Patent bilaterally. Dural sinuses: Patent. Lung apices: Partially visualized upper lobe lung parenchyma appears clear. Soft tissues: The visualized pharyngeal soft tissues are normal in appearance noting angiographic phase technique. The oropharyngeal airway appears widely patent. The salivary and thyroid glands are normal in appearance. No cervical lymphadenopathy is seen. Skeletal structures: The skeletal structures are osteopenic. The calvarium a ppears intact. The cervical spine is maintained noting multilevel spondylosis. Orbits: The bony orbits are intact. Orbital contents are normal as visualized. Sinuses and mastoids: The paranasal sinuses are clear. The mastoid air cells are well pneumatized. IMPRESSION: 1. There is no hemorrhage, mass effect, or evidence of acute territorial ischemia by CT criteria. 2. Unremarkable CT angiogram of the brain. 3. The distal right internal carotid artery demonstrates a beaded appearance suggesting fibromuscular dysplasia. 4. Otherwise unremarkable CT angiogram of the neck. ACT 112: Negative or not required by law. Electronically signed by: Law Witt M.D. 10/07/2022 4:18 PM Neck CTA 10/07/22 15:[address] OF THE BRAIN; CT ANGIOGRAM OF THE BRAIN; CT ANGIOGRAM OF THE NECK CLINICAL HISTORY: Left facial droop. COMPARISON STUDY: CT of the brain dated 10/29/2009. TECHNIQUE: Unenhanced axial CT scan of the brain is performed. Subsequently, fol lowing the IV administration of 119 of Optiray 320, CT angiogram of the head and neck was performed from the aortic arch to the vertex. Images are reviewed in the axial, sagittal, and coronal planes. 3-D MIPS images are created and assessed. IV contrast was administered without complication. All measurements were calculated based on NASCET criteria. A dose lowering technique was utilized adhering to the principles of ALARA. CT DOSE: 1069.87 mGy.cm FINDINGS: Brain parenchyma: There is age-related involutional change noting minimal microangiopathic disease. There is no hemorrhage, mass effect, or evidence of acute territorial ischemia by CT criteria. There is no evidence of enhancing mass lesion on the angiogram phase images. The ventricles, sulci, and cisterns are prominent secondary to involutional change. Hernández-white matter differentiation is preserved. No extra-axial fluid collection is seen. Thoracic aorta: Visualized portions of the thoracic aorta are normal in caliber. The aortic arch demonstrates standard 3-vessel anatomy. Right carotid arterial system: The right common carotid artery is widely patent, as are the right internal and external carotid arteries. The distal right internal carotid artery demonstrates a beaded appearance. Left carotid arterial system: The left common carotid artery is widely patent, as are the left internal and external carotid arteries. Vertebral arteries: The vertebral arteries are widely patent bilaterally and codominant. Subclavian arteries: Widely patent bilaterally. Intracranial vasculature: There is atherosclerotic calcification of the cavernous carotid arteries. The internal carotid arteries are patent at the skull base, as are the anterior and middle cerebral arteries bilaterally. The vertebrobasilar system and posterior cerebral arteries are widely patent. The vertebral arteries are codominant. There is a right posterior communicating artery. There is no aneurysm, high-grade stenosis, or focal vessel cut off seen throughout the intracranial circulation. Jugular veins: Patent bilaterally. Dural sinuses: Patent. Lung apices: Partially visualized upper lobe lung parenchyma appears clear. Soft tissues: The visualized pharyngeal soft tissues are normal in appearance noting angiographic phase technique. The oropharyngeal airway appears widely patent. The salivary and thyroid glands are normal in appearance. No cervical lymphadenopathy is seen. Skeletal structures: The skeletal structures are osteopenic. The calvarium appears intact. The cervical spine is maintained noting multilevel spondylosis. Orbits: The bony orbits are intact. Orbital contents are normal as visualized. Sinuses and mastoids: The paranasal sinuses are clear. The mastoid air cells are well pneumatized. IMPRESSION: 1. There is no hemorrhage, mass effect, or evidence of acute territorial ischemia by CT criteria. 2. Unremarkable CT angiogram of the brain. 3. The distal right internal carotid artery demonstrates a beaded appearance suggesting fibromuscular dysplasia. 4. Otherwise unremarkable CT angiogram of the neck. ACT 112: Negative or not required by law. Electronically signed by: Law Witt M.D. 10/07/2022 4:18 PM Brain MRI 10/07/22 18:04 Exam(s): MRI HEAD Without Contrast EXAM: MR Head Without Intravenous Contrast CLINICAL HISTORY: Reason for exam: stroke workup. TECHNIQUE: Magnetic resonance images of the head/brain without intravenous contrast in multiple planes. COMPARISON: Head CT done earlier the same day. FINDINGS: Brain: No mass-effect or acute infarct. No acute or chronic hemorrhage. Very mild atrophy and chronic white matter disease, overall normal exam for this age group. Ventricles: No hydrocephalus or midline shift. Bones/joints: No calvarial lesions. Soft tissues: No scalp hematoma. Sinuses: Clear. Mastoid air cells: No mastoid effusion. IMPRESSION: 1. No acute infarct, bleed, or acute intracranial abnormality. 2. Normal MRI brain for patient's age group. Electronically signed by: Michelle Baca M.D. 10/07/22 20:05 PM Discharge Plan Visit Data Chief Complaint: Stroke Alert ED Provider: Easton Noyola Discharge Problem: Slurred speech, Numbness and tingling, Weakness Patient Disposition: Admitted As Inpatient Discharge Instructions Interventions: ED Discharge Assessment Last Done: 10/07/22 20:28
--- NOTE | 2022-10-07 16:19 | CT Scan Report ---
UNENHANCED CT OF THE BRAIN; CT ANGIOGRAM OF THE BRAIN; CT ANGIOGRAM OF THE NECK CLINICAL HISTORY: Left facial droop. COMPARISON STUDY: CT of the brain dated 10/29/2009. TECHNIQUE: Unenhanced axial CT scan of the brain is performed. Subsequently, following the IV adminis tration of 119 of [address] [address], CT angiogram of the head and neck was performed from the aortic arch t o the vertex. Images are reviewed in the axial, sagittal, and coronal planes. 3-D MIPS images are cre ated and assessed. IV contrast was administered without complication. All measurements were calculate d based on NASCET criteria. A dose lowering technique was utilized adhering to the principles of ALA RA. CT DOSE: 1069.87 mGy.cm FINDINGS: Brain parenchyma: There is age-related involutional change noting minimal microangiopathic disease. T here is no hemorrhage, mass effect, or evidence of acute territorial ischemia by CT criteria. There i s no evidence of enhancing mass lesion on the angiogram phase images. The ventricles, sulci, and cist erns are prominent secondary to involutional change. Hernández-white matter differentiation is preserved. No extra-axial fluid collection is seen. Thoracic aorta: Visualized portions of the thoracic aorta are normal in caliber. The aortic arch demo nstrates standard 3-vessel anatomy. Right carotid arterial system: The right common carotid artery is widely patent, as are the right int ernal and external carotid arteries. The distal right internal carotid artery demonstrates a beaded a ppearance. Left carotid arterial system: The left common carotid artery is widely patent, as are the left wildlife [employer] internship al and external carotid arteries. Vertebral arteries: The vertebral arteries are widely patent bilaterally and codominant. Subclavian arteries: Widely patent bilaterally. Intracranial vasculature: There is atherosclerotic calcification of the cavernous carotid arteries. T he internal carotid arteries are patent at the skull base, as are the anterior and middle cerebral ar teries bilaterally. The vertebrobasilar system and posterior cerebral arteries are widely patent. The vertebral arteries are codominant. There is a right posterior communicating artery. There is no aneu rysm, high-grade stenosis, or focal vessel cut off seen throughout the intracranial circulation. Jugular veins: Patent bilaterally. Dural sinuses: Patent. Lung apices: Partially visualized upper lobe lung parenchyma appears clear. Soft tissues: The visualized pharyngeal soft tissues are normal in appearance noting angiographic pha se technique. The oropharyngeal airway appears widely patent. The salivary and thyroid glands are nor mal in appearance. No cervical lymphadenopathy is seen. Skeletal structures: The skeletal structures are osteopenic. The calvarium appears intact. The cervic al spine is maintained noting multilevel spondylosis. Orbits: The bony orbits are intact. Orbital contents are normal as visualized. Sinuses and mastoids: The paranasal sinuses are clear. The mastoid air cells are well pneumatized. IMPRESSION: 1. There is no hemorrhage, mass effect, or evidence of acute territorial ischemia by CT criteria. 2. Unremarkable CT angiogram of the brain. 3. The distal right internal carotid artery demonstrates a beaded appearance suggesting fibromuscular dysplasia. 4. Otherwise unremarkable CT angiogram of the neck. ACT 112: Negative or not required by law. Electronically signed by: Law Witt M.D. 10/07/2022 4:18 PM
[2022-10-07 16:45] LABS: iSTAT Creatinine 0.7 mg/dl (0.6-1.3); iSTAT Hemoglobin 12.9 g/dl (12.0-16.0); iSTAT Ionized Calcium 1.12 mmol/l (1.12-1.32); iSTAT Potassium 3.9 mmol/L (3.3-5.0)
--- NOTE | 2022-10-07 17:04 | XRay Report ---
SINGLE VIEW CHEST CLINICAL HISTORY: Neurological deficit. Stroke like symptoms. FINDINGS: An AP, portable, upright chest radiographs are compared to study dated 05/16/2022 and correl ated with chest CT dated 10/25/2021. The examination is degraded by portable technique and apical lord otic positioning. The cardiomediastinal silhouette is unremarkable. There are low lung volumes with m ild bibasilar atelectasis. Scattered calcified granulomas are unchanged. No airspace consolidation or large pleural effusion is identified. No pneumothorax is seen. The skeletal structures are osteopeni c. The bony thorax is grossly intact. Cholecystectomy clips are seen in the right upper quadrant. IMPRESSION: Low lung volumes with no active disease in the chest. ACT 112: Negative or not required by law. Electronically signed by: Law Witt M.D. 10/07/2022 5:03 PM
[2022-10-07] MEDS ORDERED: ASPIRIN 300 MG SUPP PR ONE (17:05)
[2022-10-07 17:15] LABS: Basophils # (auto) 0.07 K/uL (0-0.2); Basophils % (auto) 1.4 %; Eosinophils # (auto) 0.21 K/uL (0-0.50); Eosinophils % (auto) 4.1 %; Hematocrit (blood only) 38.5 % (37.0-47.0); Hemoglobin 13.2 g/dl (12.0-16.0); Immature Granulocytes # (auto) 0.02 K/uL (0.01-0.20); Immature Granulocytes % (auto) 0.4 %; Lymphocytes # (auto) 1.35 K/uL (1.2-3.4); Lymphocytes % (auto) 26.1 %; Mean Corpuscular Hemoglobin 29.3 pg (25.0-34.0); Mean Corpuscular Hgb Conc 34.3 g/dL (32.0-36.0); Mean Corpuscular Volume 85.6 fL (80.0-100.0); Mean Platelet Volume 9.2 fL (9.4-12.4); Monocytes # (auto) 0.48 K/uL (0.11-0.59); Monocytes % (auto) 9.3 %; Neutrophils # (auto) 3.04 K/uL (1.40-6.50); Neutrophils % (auto) 58.7 %; Platelet Count 230 K/uL (130-400); RDW Coefficient of Variation 12.9 % (11.5-14.5); White Blood Count 5.17 K/ul (4.8-10.8)
[2022-10-07 17:25] LABS: Alanine Aminotransferase 19 U/L (7-52); Albumin Globulin Ratio 1.5 (0.9-2); Albumin Level 3.8 gm/dl (3.4-5.0); Alkaline Phosphatase 94 U/L (34-104); Anion Gap 5 (3-11); Aspartate Aminotransferase 20 U/L (13-39); BUN Creatinine Ratio 16.4 (10-20); Bilirubin,Total 0.5 mg/dl (0.2-1.0); Blood Urea Nitrogen 12 mg/dl (6-23); Calcium 8.6 mg/dl (8.6-10.3); Carbon Dioxide 26 mmol/L (21-32); Chloride 105 mmol/L (98-107); Est GFR (African American) 97.4 ml/min; Globulin 2.6 gm/dl (2.5-4.0); Glucose 93 mg/dl (70-99(Fasting)); Magnesium 2.1 mg/dl (1.7-2.4); Potassium 3.8 mmol/L (3.5-5.1); Sodium 136 mmol/L (136-145); Total Protein 6.4 gm/dl (6.0-8.3)
[2022-10-07 17:32] LABS: Troponin I High Sensitivity 3.6 pg/ml (0-14)
[2022-10-07 17:33] LABS: Partial Thromboplastin Ratio 0.8; Partial Thromboplastin Time 21.5 Seconds (21.0-31.0); Prothrombin Time 10.7 Seconds (9.0-12.0)
--- NOTE | 2022-10-07 17:34 | History & Physical Report ---
Date of Service October 07, 2022 Assessment & Plan (1) Stroke-like symptoms: Plan: -Admit to the PCU on tele -Currently stable -Patient initially presented to the ED for right facial droop, as-well-as right upper and lower extremity numbness/weakness since 11 am -Stroke alert started in the ED, not a candidate for TNK as she was 5+ hours out from initial onset of symptoms -Patient has minimal right facial droop but was insistent that she wanted to try a dysphagia screen despite the aspiration risk, she successfully passed her bedside dysphagia screen -RUE and RLE weakness has significantly improved but not resolved at this time -CT of the head and CTA of the head/neck showed right internal carotid artery demonstrates a beaded appearance suggesting fibromuscular dysplasia but were otherwise unremarkable -Will obtain MRI of the brain wo/con now, will obtain TTE, fasting lipid panel, and A1C tomorrow for further evaluation -Will start her on clear liquid diet with aspiration precautions overnight, formal speech consult ordered -Seizure precautions and fall precautions ordered -Q4h neuro checks -Will give 324 mg PO aspirin now then continue 81 mg tomorrow -Follow A1c and lipid panel tomorrow -BL ILIR's for DVT PPX, will hold chemical PPX until MRI results -Clear liquid diet with aspiration precautions overnight -AM CBC, BMP, PT/INR (2) Granulomatous lung disease: Plan: -Stable -Continue home breathing treatments (3) MCI (mild cognitive impairment): Plan: -At baseline, completely alert and oriented (4) Depression: Plan: -Continue lexapro (5) GERD without esophagitis: Plan: -Continue omeprazole Plan The patient was discussed with Dr. Lombardo at the time of the admission History of Present Illness Chief Complaint: Stroke alert Primary Care Provider: KARLA Lemus Nayana is a 71 year old female with a PMH significant for mild cognitive impairment, anxiety, chronic cough, andGranulomatous lung disease who presented to the [facility] ED via EMS on 10/07 as a stroke alert. Per the ED staff the patient developed right facial droop, right arm and, and right leg weakness which started at approximately 11 am today. She was noted to be hypertensive with systolic BP in the 170's but otherwise stable. Labs including CBC, and CMP were unremarkable. Ct of the head wo con and CTA of the head/neck was read as "1. There is no hemorrhage, mass effect, or evidence of acute territorial ischemia by CT criteria. 2. Unremarkable CT angiogram of the brain. 3. The distal right internal carotid artery demonstrates a beaded appearance suggesting fibromuscular dysplasia. 4. Otherwise unremarkable CT angiogram of the neck.". Prior to admission the patient was ordered 300 mg VT Aspirin. At the time of the exam the patient was sitting in bed in no acute distress with her son and [id number] sitting bedside. The patient was able to pass her bedside dysphagia screen just prior to my exam. 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 She states that while walking to the car she started to feel "odd" in her head, almost like a fullness. She states that she also felt off balance, like she was drifting to the left while walking. She states that her right arm/leg felt numb and weak. She denies any headache, changes in vision, hearing, taste, and smell, chest pain, increased SOB from baseline, abd pain, nausea, vomiting, dysuria, hematuria, melena, increased LE swelling, and recent trauma. When asked, she states that she had 3 episodes of diarrhea this am, but this has resolved since arrival. She denies drinking well water or recent antibiotic use. When asked, she she states that she has had the feeling in her head previously but never as severe as today and never with the numbness/tingling/weakness. She denies recent tobacco or alcohol use. She feels as though her symptoms have improved but not completely resolved at this time. We discussed code status, the patient wishes to be a DNR/DNI and her son is her POA if she cannot make medical decisions herself. Please refer to Dr. Lombardo's attestation for any changes to the treatment plan Allergies Allergy/AdvReac Type Severity Reaction Status Date / Time cefazolin Allergy Intermediate hives Verified 10/07/22 16:23 milnacipran [From Savella] Allergy Intermediate hives, Verified 10/07/22 16:23 nauseated duloxetine [From Cymbalta] AdvReac Severe Depression Verified 10/07/22 16:23 codeine AdvReac Mild NAUSEATED Verified 10/07/22 16:23 meperidine AdvReac Mild NAUSEATED Verified 10/07/22 16:23 morphine AdvReac Mild NASUEATED Verified 10/07/22 16:23 fabric softner Allergy Mild Unknown Uncoded 10/07/22 16:23 Home Medications Medication Instructions Recorded Confirmed Type albuterol sulfate 90 mcg/actuation 1 inh inhalation QID PRN shortness 10/05/20 10/07/22 Rx aerosol inhaler of breath or wheezing #8.5 grams albuterol sulfate 2.5 mg/3 mL 2.5 mg (3 mL) inhalation QID PRN 01/07/22 10/07/22 Rx (0.083 %) solution for nebulization shortness of breath or wheezing #90 mL omeprazole magnesium 20 mg 20 mg PO DAILY PRN Acid Reflux 05/16/22 10/07/22 History tablet,delayed release (Prilosec OTC) montelukast 10 mg tablet 10 mg PO QAM 05/27/22 10/07/22 History (Singulair) escitalopram oxalate 20 mg tablet 20 mg PO QAM #30 tabs 06/11/22 10/07/22 Rx chlorpheniramine maleate 4 mg 4 mg PO Q12H 30 days #60 tabs 08/13/22 10/07/22 Rx tablet (Allergy Relief (chlorpheniramine)) fluticasone furoate 100 1 inh inhalation DAILY #60 ea 08/13/22 10/07/22 Rx mcg-vilanterol 25 mcg/dose inhalation powder (Breo Ellipta) fluticasone propionate 50 1 spray intranasal BID #18.2 mL 08/13/22 10/07/22 Rx mcg/actuation nasal spray,suspension (Flonase Allergy Relief) sodium chloride, sodium See Rx Instructions .Route 08/13/22 10/07/22 Rx bicarb-nasal rinse squeeze bottle .COMPLEX #50 ea with packet (Neilmed Sinus Rinse Complete with packet) buspirone 10 mg tablet 10 mg PO BID PRN anxiety #30 tabs 08/22/22 10/07/22 Rx tobramycin 0.3 %-dexamethasone 0.1 1 drp OPR BID 10/07/22 10/07/22 History % eye drops,suspension Past Med/Surg History Medical History Anxiety Arthritis Asthma Chronic obstructive pulmonary disease Depression Diverticulosis Dyspnea on exertion GERD (gastroesophageal reflux disease) Hiatal hernia History of colon polyps History of COVID-19 Inpatient hospitalization within last 30 days Multiple pulmonary nodules Nausea and vomiting after administration of anesthetic agent Osteoporosis Peripheral edema Rhinovirus Sinus tachycardia Surgical History History of bilateral tubal ligation History of cholecystectomy History of colonoscopy with polypectomy History of esophagogastroduodenoscopy (EGD) History of left knee surgery History of low transverse section History of tonsillectomy and adenoidectomy History of tooth extraction History of total hysterectomy with bilateral salpingo-oophorectomy (BSO) History of total left knee replacement (TKR) Hx of appendectomy Hx of laparoscopy Family History Sister Family history of diabetes mellitus Leukemia COPD (chronic obstructive pulmonary disease) Cancer Family hx colonic polyps Adverse anesthesia outcome Environmental allergies Brother Family history of diabetes mellitus COPD (chronic obstructive pulmonary disease) Family hx colonic polyps Asthma Father Family history of diabetes mellitus Hypertension Asthma Mother Environmental allergies Other No family history of adverse response to anesthesia No family history of bleeding disorder Denies family history of Ovarian cancer Prostate cancer Myocardial infarction Breast cancer Colorectal cancer Social History Smoking Status: Former smoker Tobacco Type: Cigarettes Age Started Using Tobacco: 18; Age Quit Using Tobacco: 24; Smoking End Date: smoked socially when she was 24 yrs old; Second Hand Exposure: No; Do You Dip or Chew Tobacco: No; Hx Alcohol Use: No Hx Substance Use: No Preferred Language: Syriac Communication Ability: Effective Visual Impairment: Limited Hearing Ability: Normal Staff Physician Required: No Beliefs That Will Affect Care: None marital status: / Current Living Situation: Alone Current Living Situation Comment: passed 2 yrs ago current occupational status: retired How many Children do You have: 1 Other Information That Helps Us Care for You: No Feels Safe at Home: Yes Safety Concerns: Feels Safe At This Time Childhood Exposure to Second-Hand Smoke: Yes Diet: regular caffeine: Yes during the past year weight has: remained stable Dental Care, Regularly: Yes Physical Activity Frequency: 5-6 Times per Week Seatbelt Use: always Sunscreen Use: Yes Assistive Devices: None Physical Exam Physical Exam: Physical Exam: General: In no acute distress, stated age, well-nourished, non-toxic appearing HEENT: atraumatic, no scleral icterus, pupils around round, symmetrical, and reactive to light, moist mucus membranes, trachea midline, no thyromegaly Chest/Pulm: No respiratory distress, symmetrical chest expansion, clear breath sounds throughout Cardiac: RRR, no murmurs noted Abdomen: Negative for ascites and bruising, normoactive bowel sounds, soft, non-tender to palpation throughout Musculoskeletal: Symmetrical and without signs of acute trauma, Patient with minimal decreased strength in the RUE and RLE compared to left on testing Extremities: Radial, dorsalis pedis, and posterior tibial pulses are intact and symmetrical, no edema noted in the BL LE's Skin: Warm, dry, no rashes , lesions, or scars noted Neuro: Alert and oriented to person, place, month, year, and president, minimal right facial droop, CN II-XII tested and otherwise intact intact, finger to nose test negative BL, negative pronator drift and Babinski BL, no tremors noted Psych: No acute distress, calm and cooperative during the exam Results & Data Results & Data Vital Signs (Past 12 Hours) Vital Signs Temp Pulse Pulse Resp BP Pulse Ox O2 Del Method 10/07/22 16:30 77 23 10/07/22 16:20 75 14 10/07/22 16:10 89 18 10/07/22 16:08 89 14 91 10/07/22 16:08 171/88 H 10/07/22 16:07 86 23 10/07/22 16:28 83 10/07/22 16:20 76 14 95 Room Air 10/07/22 16:07 Room Air 10/07/22 16:07 36.8 C 80 16 171/88 H 95 Room Air O2 Flow Rate 10/07/22 16:30 10/07/22 16:20 10/07/22 16:10 10/07/22 16:08 10/07/22 16:08 10/07/22 16:07 10/07/22 16:28 10/07/22 16:20 10/07/22 16:07 0 10/07/22 16:07 Laboratory Results Abnormal lab results 10/07/22 10/07/22 10/07/22 Range/Units 14:25 16:23 16:31 MPV 9.2 L (9.4-12.4) fL POC Anion Gap 15.0 L (16-25) mmol/L POC Glucose 105 H (70-99) mg/dl Diagnostic Findings Chest X-Ray 10/07/22 15:47 SINGLE VIEW CHEST CLINICAL HISTORY: Neurological deficit. Stroke like symptoms. FINDINGS: An AP, portable, upright chest radiographs are compared to study dated 05/16/2022 and correlated with chest CT dated 10/25/2021. The examination is degraded by portable technique and apical lordotic positioning. The cardiomediastinal silhouette is unremarkable. There are low lung volumes with mild bibasilar atelectasis. Scattered calcified granulomas are unchanged. No airspace consolidation or large pleural effusion is identified. No pneumothorax is seen. The skeletal structures are osteopenic. The bony thorax is grossly intact. Cholecystectomy clips are seen in the right upper quadrant. IMPRESSION: Low lung volumes with no active disease in the chest. ACT 112: Negative or not required by law. Electronically signed by: Law Witt M.D. 10/07/2022 5:[address] 10/07/22 15:[address] OF THE BRAIN; CT ANGIOGRAM OF THE BRAIN; CT ANGIOGRAM OF THE NECK CLINICAL HISTORY: Left facial droop. COMPARISON STUDY: CT of the brain dated 10/29/2009. TECHNIQUE: Unenhanced axial CT scan of the brain is performed. Subsequently, following the IV administration of 119 of Optiray 320, CT angiogram of the head and neck was performed from the aortic arch to the vertex. Images are reviewed in the axial, sagittal, and coronal planes. 3-D MIPS images are created and assessed. IV contrast was administered without complication. All measurements were calculated based on NASCET criteria. A dose lowering technique was utilized adhering to the principles of ALARA. CT DOSE: 1069.87 mGy.cm FINDINGS: Brain parenchyma: There is age-related involutional change noting minimal microangiopathic disease. There is no hemorrhage, mass effect, or evidence of acute territorial ischemia by CT criteria. There is no evidence of enhancing mass lesion on the angiogram phase images. The ventricles, sulci, and cisterns are prominent secondary to involutional change. Hernández-white matter diff erentiation is preserved. No extra-axial fluid collection is seen. Thoracic aorta: Visualized portions of the thoracic aorta are normal in caliber. The aortic arch demonstrates standard 3-vessel anatomy. Right carotid arterial system: The right common carotid artery is widely patent, as are the right internal and external carotid arteries. The distal right internal carotid artery demonstrates a beaded appearance. Left carotid arterial system: The left common carotid artery is widely patent, as are the left internal and external carotid arteries. Vertebral arteries: The vertebral arteries are widely patent bilaterally and codominant. Subclavian arteries: Widely patent bilaterally. Intracranial vasculature: There is atherosclerotic calcification of the cavernous carotid arteries. The internal carotid arteries are patent at the skull base, as are the anterior and middle cerebral arteries bilaterally. The vertebrobasilar system and posterior cerebral arteries are widely patent. The vertebral arteries are codominant. There is a right posterior communicating artery. There is no aneurysm, high-grade stenosis, or focal vessel cut off seen throughout the intracranial circulation. Jugular veins: Patent bilaterally. Dural sinuses: Patent. Lung apices: Partially visualized upper lobe lung parenchyma appears clear. Soft tissues: The visualized pharyngeal soft tissues are normal in appearance noting angiographic phase technique. The oropharyngeal airway appears widely patent. The salivary and thyroid glands are normal in appearance. No cervical lymphadenopathy is seen. Skeletal structures: The skeletal structures are osteopenic. The calvarium appears intact. The cervical spine is maintained noting multilevel spondylosis. Orbits: The bony orbits are intact. Orbital contents are normal as visualized. Sinuses and mastoids: The paranasal sinuses are clear. The mastoid air cells are well pneumatized. IMPRESSION: 1. There is no hemorrhage, mass effect, or evidence of acute territorial ischemia by CT criteria. 2. Unremarkable CT angiogram of the brain. 3. The distal right internal carotid artery demonstrates a beaded appearance suggesting fibromuscular dysplasia. 4. Otherwise unremarkable CT angiogram of the neck. ACT 112: Negative or not required by law. Electronically signed by: Law Witt M.D. 10/07/2022 4:18 PM Head CTA 10/07/22 15:[address] OF THE BRAIN; CT ANGIOGRAM OF THE BRAIN; CT ANGIOGRAM OF THE NECK CLINICAL HISTORY: Left facial droop. COMPARISON STUDY: CT of the brain dated 10/29/2009. TECHNIQUE: Unenhanced axial CT scan of the brain is performed. Subsequently, following the IV administration of 119 of Optiray 320, CT angiogram of the head and neck was performed from the aortic arch to the vertex. Images are reviewed in the axial, sagittal, and coronal planes. 3-D MIPS images are created and assessed. IV contrast was administered without complication. All measurements were calculated based on NASCET criteria. A dose lowering technique was utilized adhering to the principles of ALARA. CT DOSE: 1069.87 mGy.cm FINDINGS: Brain parenchyma: There is age-related involutional change noting minimal microangiopathic disease. There is no hemorrhage, mass effect, or evidence of acute territorial ischemia by CT criteria. There is no evidence of enhancing mass lesion on the angiogram phase images. The ventricles, sulci, and cisterns are prominent secondary to involutional change. Hernández-white matter differentiation is preserved. No extra-axial fluid collection is seen. Thoracic aorta: Visualized portions of the thoracic aorta are normal in caliber. The aortic arch demonstrates standard 3-vessel anatomy. Right carotid arterial system: The right common carotid artery is widely patent, as are the right internal and external carotid arteries. The distal right internal carotid artery demonstrates a beaded appearance. Left carotid arterial system: The left common carotid artery is widely patent, as are the left internal and external carotid arteries. Vertebral arteries: The vertebral arteries are widely patent bilaterally and codominant. Subclavian arteries: Widely patent bilaterally. Intracranial vasculature: There is atherosclerotic calcification of the cavernous carotid arteries. The internal carotid arteries are patent at the skull base, as are the anterior and middle cerebral arteries bilaterally. The vertebrobasilar system and posterior cerebral arteries are widely patent. The vertebral arteries are codominant. There is a right posterior communicating artery. There is no aneurysm, high-grade stenosis, or focal vessel cut off seen throughout the intracranial circulation. Jugular veins: Patent bilaterally. Dural sinuses: Patent. Lung apices: Partially visualized upper lobe lung parenchyma appears clear. Soft tissues: The visualized pharyngeal soft tissues are normal in appearance noting angiographic phase technique. The oropharyngeal airway appears widely patent. The salivary and thyroid glands are normal in appearance. No cervical lymphadenopathy is seen. Skeletal structures: The skeletal structures are osteopenic. The calvarium appears intact. The cervical spine is maintained noting multilevel spondylosis. Orbits: The bony orbits are intact. Orbital contents are normal as visualized. Sinuses and mastoids: The paranasal sinuses are clear. The mastoid air cells are well pneumatized. IMPRESSION: 1. There is no hemorrhage, mass effect, or evidence of acute territorial ischemia by CT criteria. 2. Unremarkable CT angiogram of the brain. 3. The distal right internal carotid artery demonstrates a beaded appearance suggesting fibromuscular dysplasia. 4. Otherwise unremarkable CT angiogram of the neck. ACT 112: Negative or not required by law. Electronically signed by: Law Witt M.D. 10/07/2022 4:18 PM Neck CTA 10/07/22 15:[address] OF THE BRAIN; CT ANGIOGRAM OF THE BRAIN; CT ANGIOGRAM OF THE NECK CLINICAL HISTORY: Left facial droop. COMPARISON STUDY: CT of the brain dated 10/29/2009. TECHNIQUE: Unenhanced axial CT scan of the brain is performed. Subsequently, following the IV administration of 119 of Optiray 320, CT angiogram of the head and neck was performed from the aortic arch to the vertex. Images are reviewed in the axial, sagittal, and coronal planes. 3-D MIPS images are created and assessed. IV contrast was administered without complication. All measurements were calculated based on NASCET criteria. A dose lowering technique was utilized adhering to the principles of ALARA. CT DOSE: 1069.87 mGy.cm FINDINGS: Brain parenchyma: There is age-related involutional change noting minimal microangiopathic disease. There is no hemorrhage, mass effect, or evidence of acute territorial ischemia by CT criteria. There is no evidence of enhancing mass lesion on the angiogram phase images. The ventricles, sulci, and cisterns are prominent secondary to involutional change. Hernández-white matter differentiation is preserved. No extra-axial fluid collection is seen. Thoracic aorta: Visualized portions of the thoracic aorta are normal in caliber. The aortic arch demonstrates standard 3-vessel anatomy. Right carotid arterial system: The right common carotid artery is widely patent, as are the right internal and external carotid arteries. The distal right internal carotid artery demonstrates a beaded appearance. Left carotid arterial system: The left common carotid artery is widely patent, as are the left internal and external carotid arteries. Vertebral arteries: The vertebral arteries are widely patent bilaterally and codominant. Subclavian arteries: Widely patent bilaterally. Intracranial vasculature: There is atherosclerotic calcification of the cavernous carotid arteries. The internal carotid arteries are patent at the skull base, as are the anterior and middle cerebral arteries bilaterally. The vertebrobasilar system and posterior cerebral arteries are widely patent. The vertebral arteries are codominant. There is a right posterior communicating artery. There is no aneurysm, high-grade stenosis, or focal vessel cut off seen throughout the intracranial circulation. Jugular veins: Patent bilaterally. Dural sinuses: Patent. Lung apices: Partially visualized upper lobe lung parenchyma appears clear. Soft tissues: The visualized pharyngeal soft tissues are normal in appearance noting angiographic phase technique. The oropharyngeal airway appears widely patent. The salivary and thyroid glands are normal in appearance. No cervical lymphadenopathy is seen. Skeletal structures: The skeletal structures are osteopenic. The calvarium appears intact. The cervical spine is maintained noting multilevel spondylosis. Orbits: The bony orbits are intact. Orbital contents are normal as visualized. Sinuses and mastoids: The paranasal sinuses are clear. The mastoid air cells are well pneumatized. IMPRESSION: 1. There is no hemorrhage, mass effect, or evidence of acute territorial ischemia by CT criteria. 2. Unremarkable CT angiogram of the brain. 3. The distal right internal carotid artery demonstrates a beaded appearance suggesting fibromuscular dysplasia. 4. Otherwise unremarkable CT angiogram of the neck. ACT 112: Negative or not required by law. Electronically signed by: Law Witt M.D. 10/07/2022 4:18 PM ECG Additional Comments: Normal sinus rhythm Possible Left atrial enlargement Borderline ECG When compared with ECG of 16-MAY-2022 14:32, No significant change was found Code Status & VTE Plan Code Status DNR/DNI VTE Prophylaxis Plan VTE Prophylaxis will be ordered: Yes Supervising Physician Co-Signing Physician Notes I personally saw and examined the patient. 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 Last known well 11am this morning. Associated with headache. Symptoms now completely resolved when seen on the becerra. O/E A&Ox3, HS RRR, no murmurs, no pronator drift, no extremity weakness or change in sensation A/P Stroke-like symptoms - Brain MRI, TTE with bubble study, consult neurology, HbA1C and lipid panel in AM, start aspirin. PG Care Time/CCT Total # of Minutes Spent Total Time Spent with Patient: Total time spent is greater than 50% in coordination of care (as documented) at patient's floor/unit and/or counseling patient: Coding [place] [address] INT INP/OBS CARE 3/75MIN Patient Type Established Medical Decision Making High Complexity Diagnoses Stroke-like symptoms R29.90 Granulomatous lung disease J84.10 MCI (mild cognitive impairment) G31.84 Depression F32.9 GERD without esophagitis K21.9
[2022-10-07] MEDS ORDERED: PHARMACIST DISCHARGE MED REC CONSULT PRN (17:35)
[2022-10-07 17:49] LABS: Appearance Urine Clear (Clear); Bilirubin Urine Negative (Negative); Blood Urine Negative (Negative); Color Urine Yellow; Glucose Urine UA Negative (Negative); Ketones Urine Negative (Negative); Leukocyte Esterase Urine Negative (Negative); Nitrite Urine Negative (Negative); Protein Urine Negative (Negative); Specific Gravity Urine 1.022 (1.000-1.030); Urobilinogen Urine Negative (Negative); pH Urine 7.5 (4.5-7.5)
[2022-10-07] MEDS ORDERED: ASPIRIN 81 MG CHEW PO STA (18:29)
--- NOTE | 2022-10-07 20:06 | Magnetic Resonance Report ---
Exam(s): MRI HEAD Without Contrast EXAM: MR Head Without Intravenous Contrast CLINICAL HISTORY: Reason for exam: stroke workup. TECHNIQUE: Magnetic resonance images of the head/brain without intravenous contrast in multiple planes. COMPARISON: Head CT done earlier the same day. FINDINGS: Brain: No mass-effect or acute infarct. No acute or chronic hemorrhage. Very mild atrophy and chronic white matter disease, overall normal exam for this age group. Ventricles: No hydrocephalus or midline shift. Bones/joints: No calvarial lesions. Soft tissues: No scalp hematoma. Sinuses: Clear. Mastoid air cells: No mastoid effusion. IMPRESSION: 1. No acute infarct, bleed, or acute intracranial abnormality. 2. Normal MRI brain for patient's age group. Electronically signed by: Michelle Baca M.D. 10/07/22 20:05 PM
[2022-10-07] MEDS ORDERED: busPIRone 5 MG TAB PO PRN (20:51)
[2022-10-07] MEDS ORDERED: ALBUTEROL 0.083% NEBU SOLN 3 ML VIAL INH PRN (20:51)
[2022-10-07] MEDS ORDERED: TOBRAMYCIN/DEXAMETHASONE OPH SUSP 2.5 ML BTL OPR SCH (21:00)
[2022-10-08 06:20] LABS: Basophils # (auto) 0.09 K/uL (0-0.2); Basophils % (auto) 1.6 %; Eosinophils # (auto) 0.31 K/uL (0-0.50); Eosinophils % (auto) 5.4 %; Hematocrit (blood only) 39.4 % (37.0-47.0); Hemoglobin 13.8 g/dl (12.0-16.0); Immature Granulocytes # (auto) 0.01 K/uL (0.01-0.20); Immature Granulocytes % (auto) 0.2 %; Lymphocytes # (auto) 1.41 K/uL (1.2-3.4); Lymphocytes % (auto) 24.6 %; Mean Corpuscular Hemoglobin 29.1 pg (25.0-34.0); Mean Corpuscular Volume 82.9 fL (80.0-100.0); Mean Platelet Volume 9.2 fL (9.4-12.4); Monocytes # (auto) 0.54 K/uL (0.11-0.59); Monocytes % (auto) 9.4 %; Neutrophils # (auto) 3.38 K/uL (1.40-6.50); Neutrophils % (auto) 58.8 %; Platelet Count 239 K/uL (130-400); RDW Coefficient of Variation 13.1 % (11.5-14.5); RDW Standard Deviation 39.4 fL (36.4-46.3); Red Blood Count 4.75 M/uL (4.20-5.40); White Blood Count 5.74 K/ul (4.8-10.8)
[2022-10-08 06:38] LABS: BUN Creatinine Ratio 19.3 (10-20); Calcium 9.2 mg/dl (8.6-10.3); Creatinine Clr Calc Pharmacy 86.9 ml/min; Est GFR (African American) 109.6 ml/min; Est GFR (Non-African American) 94.6 ml/min; Potassium 3.9 mmol/L (3.5-5.1)
[2022-10-08 07:49] LABS: Estimated Average Glucose 117 mg/dl; Hemoglobin A1C 5.7 % (4.5-5.6)
[2022-10-08] MEDS: ESCITALOPRAM OXALATE 20 MG TAB PO SCH (08:27)
[2022-10-08] MEDS: FLUTICASONE/VILANTEROL 100/25MCG 14 PUFFS/INHALER INH SCH (08:28)
[2022-10-08] MEDS: ASPIRIN 81 MG ECTAB PO SCH (08:28)
[2022-10-08] MEDS ORDERED: FAMOTIDINE 20 MG in SYRINGE 3 ML IV SCH (09:00)
--- NOTE | 2022-10-08 10:01 | XCELERA ---
[id number]
[2022-10-08] MEDS ORDERED: PANTOprazole 40 MG TAB PO SCH (10:15)
--- NOTE | 2022-10-08 10:15 | Hospitalist Progress Note ---
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 She successfully passed her bedside dysphagia screen -RUE and RLE weakness has significantly improved at this time -CBC reviewed today; no evidence of meningitis/encephalitis such as elevated WBC count, fevers, did have sister with fungal meningitis ~7 weeks ago however per ID would not be likely to be transmissible -CT of the head and CTA of the head/neck without evidence of CVA, MRI without evidence of CVA or other acute pathology -Neurology consulted and appreciate recommendations: given resolution in motor symptoms with improvement in anxiety/depression symptoms this afternoon, no evidence of CVA or infection, suspect functional/conversion disorder in the setting of tremendous and multiple recent stressors -Possible TIA also on differential though less likely -Recommended psychiatry/counseling to patient, she is amenable so will provide resources, also recommended PCP follow up (2) Conversion disorder: Plan: see above (3) Fibromuscular dysplasia: Plan: -Noted evidence of such in distal RIGHT internal carotid -Continue aspirin 81mg daily for FMD -BP at goal for age, follow up with PCP (4) Stroke-like symptoms: Plan: -See above, stroke has since been ruled out (5) Granulomatous lung disease: Plan: -Stable -Continue home breathing treatments (6) Depression: Plan: -Continue Lexapro, with outpatient Psych/counseling as above (7) GERD without esophagitis: Plan: -Continue PPI Plan Patient has PT and OT ordered for tomorrow to [facility] for care needs on discharge, also needs Psych/counseling resources, plan for d/c home tomorrow if cleared by therapy services and symptoms continue to be improved like they are this afternoon. Admission and Anticipated Discharge Date Admission Date: October 07, 2022 Subjective This morning with some headache, resolved with Tylenol, also with resolution in slurred speech and limb weakness with Tylenol. No fevers or chills, no SOB, chest pain. Physical Exam Constitutional: WD/WN, vitals as above Respiratory: normal respiratory effort, lungs clear to auscultation Cardiovascular: RRR, no murmur, no edema Gastrointestinal (Abdomen): normal bowel sounds, soft, nontender, no hepatosplenomegaly Skin: no rashes, warm and dry Neurologic: improvement in LEFT facial / eye droop, right upper/lower extremity weakness Improved speech without slurring this afternoon, slow speech at times Psychiatric: alert and oriented, anxious affect Results & Data Results & Data Vital Signs (Past 12 Hours) Vital Signs Temp Pulse Resp BP Pulse Ox O2 Del Method 10/08/22 07:37 36.5 C 71 17 123/74 95 Room Air 10/08/22 03:09 36.6 C 64 16 104/61 94 Room Air 10/07/22 23:44 36.4 C L 67 16 136/83 95 Room Air PG Care Time/CCT Total # of Minutes Spent Total Time Spent with Patient: Total time spent is greater than 50% in coordination of care (as documented) at patient's floor/unit and/or counseling patient: Coding Level of Care Code 87562 SUB INP/OBS CARE 3/50MIN Diagnoses 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
[2022-10-08] MEDS ORDERED: ONDANSETRON INJ 2 MG/ML 2 ML VIAL IV STA (10:20)
[2022-10-08] MEDS ORDERED: ONDANSETRON INJ 2 MG/ML 2 ML VIAL IV PRN (10:21)
[2022-10-08] MEDS ORDERED: ACETAMINOPHEN 1,000 MG/100 ML VIAL IV STA (10:27)
[2022-10-08] MEDS ORDERED: PANTOprazole 40 MG in SYRINGE 0 ML IV SCH (11:00)
--- NOTE | 2022-10-08 11:57 | Electrocardiogram Report ---
Test Reason : Blood Pressure : / mmHG Vent. Rate : 088 BPM Atrial Rate : 088 BPM P-R Int : 150 ms QRS Dur : 080 ms QT Int : 390 ms P-R-T Axes : 070 042 060 degrees QTc Int : 471 ms Normal sinus rhythm Possible Left atrial enlargement Borderline ECG When compared with ECG of 16-MAY-2022 14:32, No significant change was found Confirmed by Darin Piña ([id number]) on 10/08/2022 11:56:47 AM Referred By: REFERRED SELF Confirmed By:Terry Piña
--- NOTE | 2022-10-08 13:14 | Infectious Disease Consult ---
Date of Consultation October 08, 2022 Assessment & Plan (1) Stroke-like symptoms: Plan Micro: None Abx: None Problems: #L facial droop #RUE, RLE weakness #Cefazolin allergy 71 yo F with history of mild cognitive impairment, anxiety, asthma, COPD, chronic cough, granulomatous lung disease who presented on 10/07 as stroke alert, with L facial droop, RUE and RLE weakness since 11am. Pt reports that for the last ~2 weeks, she has been having a "weird feeling in her head", like she is "floating around", with some headache at the top of her head that makes her eyes feel "weird". She feels like her body is moving to the left when she is walking. She also had some double vision in her R eye at the beginning of the week, but this "didn't last long". She denies fevers, but reports some chills over the last 2 weeks. ROS is negative aside from diarrhea on 10/07 and 10/08. On presentation, pt was afebrile, hypertensive, with unremarkable CBC and CMP. UA, CXR neg. CT head, CTA head/neck negative aside from distal right internal carotid artery beaded appearance suggesting fibromuscular dysplasia. Brain MRI without acute infarct, bleed, or intracranial abnormality. TTE shows no cardiac source of emboli. Patient has noted some improvement in her symptoms since admission. On social history, no significant infectious exposures, but has been working outdoors mowing the lawn, has beltre behind her house. Had a mosquito bite 2-3 weeks ago, no known tick bites. Recommendations: -Exam/history is not particularly suggestive of a meningitis, and pt is without fevers or leukocytosis. If pt gets lumbar puncture, send for cell counts, protein, glucose, gram stain, culture, meningitis PCR panel. If initial studies not suggestive of bacterial meningitis, would hold off on antibiotics. If elevated WBC and protein, can start vanc, ceftriaxone (2 g q12h), ampicillin, acyclovir pending further studies. Pt has previously tolerated amoxicillin, and cefazolin does not have cross-reactivity with other cephalosporins. -Serum Lyme screen with reflex western blot Please page [facility] with further questions. Consultation Information Consultation was provided via telemedicine using two-way real-time interactive telecommunication between the patient and the telemedicine provider. For the duration of the visit, the provider was performing the assessment from a different facility than the patient. This includesuse of bluetooth stethoscope forauscultationperformed by the telepresenter that the telemedicine provider can hear if described in the physical exam. Insurance Sales Professional contact information: Please call [facility] [phone]. (Phone Number For Physician Use Only) After establishing a telemedicine visit, patient was: Patient was verified with two unique identifiers, Patient/authorized rep acknowledged consent and understanding and Gave permission to continue telehealth session Time Spent with Patient: Initial => 40 min History of Present Illness Reason for Consultation: Concern for meningitis, antibiotic allergies Requesting Physician: Dr. Anay Melchor Attending Physician: Anay Melchor, History of Present Illness 71 yo F with history of mild cognitive impairment, anxiety, asthma, COPD, chronic cough, granulomatous lung disease who presented on 10/07 as stroke alert, with L facial droop, RUE and RLE weakness since 11am. Pt reports that for the last ~2 weeks, she has been having a "weird feeling in her head", like she is "floating around", with some headache at the top of her head that makes her eyes feel "weird". She feels like her body is moving to the left when she is walking. She also had some double vision in her R eye at the beginning of the week, but this "didn't last long". She denies fevers. Reports some chills over the last 2 weeks. Reports unchanged chronic dyspnea. Has had some L abd pain under her rib, she thinks potentially related to her hiatal hernia, and had a recent episode of this while bending over, but resolved with some massage. Denies dysuria. Had 3 episodes of diarrhea yesterday morning, and another episode today. Denies wounds or rashes. On presentation, patient was afebrile, hypertensive. Labs showed unremarkable CBC and CMP. UA negative. Chest x-ray negative. CT head, CTA head/neck negative aside from distal right internal carotid artery beaded appearance suggesting fibromuscular dysplasia. Brain MRI without acute infarct, bleed, or intracranial abnormality. TTE shows no cardiac source of emboli. Patient has noted some improvement in her symptoms since admission. She currently has a slight headache in the back of her head, which she reports having every once in a while in the past. On social history, she was born in [facility]. Lives by herself. No pets. Has never traveled outside of the country. 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 No recent travel. Has been doing a lot of upkeep on the outside of her house, mowing, cleaning. Has a half acre of grounds that she mows, has been weeding flower beds. Had a mosquito bite 2-3 weeks ago. No known tick bites. Lives near [facility] area. No recent animal exposures. Her sister has a history of lung transplant 3 years ago, was recently diagnosed with fungal and bacterial meningitis. Allergies Allergy/AdvReac Type Severity Reaction Status Date / Time cefazolin Allergy Intermediate hives Verified 10/07/22 16:23 milnacipran [From Savella] Allergy Intermediate hives, Verified 10/07/22 16:23 nauseated duloxetine [From Cymbalta] AdvReac Severe Depression Verified 10/07/22 16:23 codeine AdvReac Mild NAUSEATED Verified 10/07/22 16:23 meperidine AdvReac Mild NAUSEATED Verified 10/07/22 16:23 morphine AdvReac Mild NASUEATED Verified 10/07/22 16:23 fabric softner Allergy Mild Unknown Uncoded 10/07/22 16:23 Home Medications Medication Instructions Recorded Confirmed Type albuterol sulfate 90 mcg/actuation 1 inh inhalation QID PRN shortness 10/05/20 10/07/22 Rx aerosol inhaler of breath or wheezing #8.5 grams albuterol sulfate 2.5 mg/3 mL 2.5 mg (3 mL) inhalation QID PRN 01/07/22 10/07/22 Rx (0.083 %) solution for nebulization shortness of breath or wheezing #90 mL omeprazole magnesium 20 mg 20 mg PO DAILY PRN Acid Reflux 05/16/22 10/07/22 History tablet,delayed release (Prilosec OTC) montelukast 10 mg tablet 10 mg PO QAM 05/27/22 10/07/22 History (Singulair) escitalopram oxalate 20 mg tablet 20 mg PO QAM #30 tabs 06/11/22 10/07/22 Rx chlorpheniramine maleate 4 mg 4 mg PO Q12H 30 days #60 tabs 08/13/22 10/07/22 Rx tablet (Allergy Relief (chlorpheniramine)) fluticasone furoate 100 1 inh inhalation DAILY #60 ea 08/13/22 10/07/22 Rx mcg-vilanterol 25 mcg/dose inhalation powder (Breo Ellipta) fluticasone propionate 50 1 spray intranasal BID #18.2 mL 08/13/22 10/07/22 Rx mcg/actuation nasal spray,suspension (Flonase Allergy Relief) sodium chloride, sodium See Rx Instructions .Route 08/13/22 10/07/22 Rx bicarb-nasal rinse squeeze bottle .COMPLEX #50 ea with packet (Neilmed Sinus Rinse Complete with packet) buspirone 10 mg tablet 10 mg PO BID PRN anxiety #30 tabs 08/22/22 10/07/22 Rx tobramycin 0.3 %-dexamethasone 0.1 1 drp OPR BID 10/07/22 10/07/22 History % eye drops,suspension Patient History Medical History Anxiety Arthritis Asthma Chronic obstructive pulmonary disease Depression Diverticulosis Dyspnea on exertion GERD (gastroesophageal reflux disease) Hiatal hernia History of colon polyps History of COVID-19 Inpatient hospitalization within last 30 days Multiple pulmonary nodules Nausea and vomiting after administration of anesthetic agent Osteoporosis Peripheral edema Rhinovirus Sinus tachycardia Surgical History History of bilateral tubal ligation History of cholecystectomy History of colonoscopy with polypectomy History of esophagogastroduodenoscopy (EGD) History of left knee surgery History of low transverse section History of tonsillectomy and adenoidectomy History of tooth extraction History of total hysterectomy with bilateral salpingo-oophorectomy (BSO) History of total left knee replacement (TKR) Hx of appendectomy Hx of laparoscopy Family History Sister Family history of diabetes mellitus Leukemia COPD (chronic obstructive pulmonary disease) Cancer Family hx colonic polyps Adverse anesthesia outcome Environmental allergies Brother Family history of diabetes mellitus COPD (chronic obstructive pulmonary disease) Family hx colonic polyps Asthma Father Family history of diabetes mellitus Hypertension Asthma Mother Environmental allergies Other No family history of adverse response to anesthesia No family history of bleeding disorder Denies family history of Ovarian cancer Prostate cancer Myocardial infarction Breast cancer Colorectal cancer Social History Smoking Status: Former smoker Tobacco Type: Cigarettes Age Started Using Tobacco: 18; Age Quit Using Tobacco: 24; Smoking End Date: smoked socially when she was 24 yrs old; Second Hand Exposure: No; Do You Dip or Chew Tobacco: No; Hx Alcohol Use: No Hx Substance Use: No Preferred Language: Puerto Rican Communication Ability: Effective Visual Impairment: Limited Hearing Ability: Normal Tender Labor Required: No Beliefs That Will Affect Care: None marital status: / Current Living Situation: Alone Current Living Situation Comment: passed 2 yrs ago current occupational status: retired How many Children do You have: 1 Other Information That Helps Us Care for You: No Feels Safe at Home: Yes Safety Concerns: Feels Safe At This Time Childhood Exposure to Second-Hand Smoke: Yes Diet: regular caffeine: Yes during the past year weight has: remained stable Dental Care, Regularly: Yes Physical Activity Frequency: 5-6 Times per Week Seatbelt Use: always Sunscreen Use: Yes Assistive Devices: None Review of System A complete ROS was performed and is negative except as mentioned in the HPI. Physical Exam Physical Exam: GEN: laying in bed in NAD. RESP: No increased work of breathing ABD: Soft, non-distended. Non-tender to palpation. EXT: Warm, well-perfused. SKIN: No lesions or rashes on exposed skin. NEURO: Alert and oriented. Answers all questions appropriately. PSYCH: Normal mood, affect appropriate. Results & Data Vital Signs (Past 12 Hours) Vital Signs Temp Pulse Resp BP Pulse Ox O2 Del Method 10/08/22 12:13 36.4 C L 68 17 144/77 H 93 Room Air 10/08/22 07:37 36.5 C 71 17 123/74 95 Room Air 10/08/22 03:09 36.6 C 64 16 104/61 94 Room Air Laboratory Results Short CBC 10/07/22 10/08/22 Range/Units 14:25 05:54 WBC 5.17 5.74 (4.8-10.8) K/ul Hgb 13.2 13.8 (12.0-16.0) g/dl Hct 38.5 39.4 (37.0-47.0) % Plt Count 230 239 (130-400) K/uL BMP 10/07/22 10/08/22 14:25 05:55 Sodium 136 139 Potassium 3.8 3.9 Chloride 105 108 H Carbon Dioxide 26 25 BUN 12 11 Creatinine 0.73 0.57 L Glucose 93 112 H Calcium 8.6 9.2 Liver Function 10/07/22 Range/Units 14:25 Total Bilirubin 0.5 (0.2-1.0) mg/dl AST 20 (13-39) U/L ALT 19 (7-52) U/L Alkaline Phosphatase 94 (34-104) U/L Albumin 3.8 (3.4-5.0) gm/dl Urine 10/07/22 Range/Units Unknown Urine Color Yellow Urine Appearance Clear (Clear) Urine pH 7.5 (4.5-7.5) Ur Specific Hess[place] 1.022 (1.000-1.030) Urine Protein Negative (Negative) Urine Glucose (UA) Negative (Negative) Diagnostic Findings Chest X-Ray 10/07/22 15:47 SINGLE VIEW CHEST CLINICAL HISTORY: Neurological deficit. Stroke like symptoms. FINDINGS: An AP, portable, upright chest radiographs are compared to study dated 05/16/2022 and correlated with chest CT dated 10/25/2021. The examination is degraded by portable technique and apical lordotic positioning. The cardiomediastinal silhouette is unremarkable. There are low lung volumes with mild bibasilar atelectasis. Scattered calcified granulomas are unchanged. No airspace consolidation or large pleural effusion is identified. No pneumothorax is seen. The skeletal structures are osteopenic. The bony thorax is grossly intact. Cholecystectomy clips are seen in the right upper quadrant. IMPRESSION: Low lung volumes with no active disease in the chest. ACT 112: Negative or not required by law. Electronically signed by: Law Witt M.D. 10/07/2022 5:[address] 10/07/22 15:[address] OF THE BRAIN; CT ANGIOGRAM OF THE BRAIN; CT ANGIOGRAM OF THE NECK CLINICAL HISTORY: Left facial droop. COMPARISON STUDY: CT of the brain dated 10/29/2009. TECHNIQUE: Unenhanced axial CT scan of the brain is performed. Subsequently, following the IV administration of 119 of Optiray 320, CT angiogram of the head and neck was performed from the aortic arch to the vertex. Images are reviewed in the axial, sagittal, and coronal planes. 3-D MIPS images are created and assessed. IV contrast was administered without complication. All measurements were calculated based on NASCET criteria. A dose lowering technique was utilized adhering to the principles of ALARA. CT DOSE: 1069.87 mGy.cm FINDINGS: Brain parenchyma: There is age-related involutional change noting minimal microangiopathic disease. There is no hemorrhage, mass effect, or evidence of acute territorial ischemia by CT criteria. There is no evidence of enhancing mas s lesion on the angiogram phase images. The ventricles, sulci, and cisterns are prominent secondary to involutional change. Hernández-white matter differentiation is preserved. No extra-axial fluid collection is seen. Thoracic aorta: Visualized portions of the thoracic aorta are normal in caliber. The aortic arch demonstrates standard 3-vessel anatomy. Right carotid arterial system: The right common carotid artery is widely patent, as are the right internal and external carotid arteries. The distal right internal carotid artery demonstrates a beaded appearance. Left carotid arterial system: The left common carotid artery is widely patent, as are the left internal and external carotid arteries. Vertebral arteries: The vertebral arteries are widely patent bilaterally and codominant. Subclavian arteries: Widely patent bilaterally. Intracranial vasculature: There is atherosclerotic calcification of the cavernous carotid arteries. The internal carotid arteries are patent at the skull base, as are the anterior and middle cerebral arteries bilaterally. The vertebrobasilar system and posterior cerebral arteries are widely patent. The vertebral arteries are codominant. There is a right posterior communicating artery. There is no aneurysm, high-grade stenosis, or focal vessel cut off seen throughout the intracranial circulation. Jugular veins: Patent bilaterally. Dural sinuses: Patent. Lung apices: Partially visualized upper lobe lung parenchyma appears clear. Soft tissues: The visualized pharyngeal soft tissues are normal in appearance noting angiographic phase technique. The oropharyngeal airway appears widely patent. The salivary and thyroid glands are normal in appearance. No cervical lymphadenopathy is seen. Skeletal structures: The skeletal structures are osteopenic. The calvarium appears intact. The cervical spine is maintained noting multilevel spondylosis. Orbits: The bony orbits are intact. Orbital contents are normal as visualized. Sinuses and mastoids: The paranasal sinuses are clear. The mastoid air cells are well pneumatized. IMPRESSION: 1. There is no hemorrhage, mass effect, or evidence of acute territorial ischemia by CT criteria. 2. Unremarkable CT angiogram of the brain. 3. The distal right internal carotid artery demonstrates a beaded appearance suggesting fibromuscular dysplasia. 4. Otherwise unremarkable CT angiogram of the neck. ACT 112: Negative or not required by law. Electronically signed by: Law Witt M.D. 10/07/2022 4:18 PM Head CTA 10/07/22 15:[address] OF THE BRAIN; CT ANGIOGRAM OF THE BRAIN; CT ANGIOGRAM OF THE NECK CLINICAL HISTORY: Left facial droop. COMPARISON STUDY: CT of the brain dated 10/29/2009. TECHNIQUE: Unenhanced axial CT scan of the brain is performed. Subsequently, following the IV administration of 119 of Optiray 320, CT angiogram of the head and neck was performed from the aortic arch to the vertex. Images are reviewed i n the axial, sagittal, and coronal planes. 3-D MIPS images are created and assessed. IV contrast was administered without complication. All measurements were calculated based on NASCET criteria. A dose lowering technique was utilized adhering to the principles of ALARA. CT DOSE: 1069.87 mGy.cm FINDINGS: Brain parenchyma: There is age-related involutional change noting minimal microangiopathic disease. There is no hemorrhage, mass effect, or evidence of acute territorial ischemia by CT criteria. There is no evidence of enhancing mass lesion on the angiogram phase images. The ventricles, sulci, and cisterns are prominent secondary to involutional change. Hernández-white matter differentiation is preserved. No extra-axial fluid collection is seen. Thoracic aorta: Visualized portions of the thoracic aorta are normal in caliber. The aortic arch demonstrates standard 3-vessel anatomy. Right carotid arterial system: The right common carotid artery is widely patent, as are the right internal and external carotid arteries. The distal right internal carotid artery demonstrates a beaded appearance. Left carotid arterial system: The left common carotid artery is widely patent, as are the left internal and external carotid arteries. Vertebral arteries: The vertebral arteries are widely patent bilaterally and codominant. Subclavian arteries: Widely patent bilaterally. Intracranial vasculature: There is atherosclerotic calcification of the cavernous carotid arteries. The internal carotid arteries are patent at the skull base, as are the anterior and middle cerebral arteries bilaterally. The vertebrobasilar system and posterior cerebral arteries are widely patent. The vertebral arteries are codominant. There is a right posterior communicating artery. There is no aneurysm, high-grade stenosis, or focal vessel cut off seen throughout the intracranial circulation. Jugular veins: Patent bilaterally. Dural sinuses: Patent. Lung apices: Partially visualized upper lobe lung parenchyma appears clear. Soft tissues: The visualized pharyngeal soft tissues are normal in appearance noting angiographic phase technique. The oropharyngeal airway appears widely patent. The salivary and thyroid glands are normal in appearance. No cervical lymphadenopathy is seen. Skeletal structures: The skeletal structures are osteopenic. The calvarium appears intact. The cervical spine is maintained noting multilevel spondylosis. Orbits: The bony orbits are intact. Orbital contents are normal as visualized. Sinuses and mastoids: The paranasal sinuses are clear. The mastoid air cells are well pneumatized. IMPRESSION: 1. There is no hemorrhage, mass effect, or evidence of acute territorial ischemia by CT criteria. 2. Unremarkable CT angiogram of the brain. 3. The distal right internal carotid artery demonstrates a beaded appearance suggesting fibromuscular dysplasia. 4. Otherwise unremarkable CT angiogram of the neck. ACT 112: Negative or not required by law. Electronically signed by: Law Witt M.D. 10/07/2022 4:18 PM Neck CTA 10/07/22 15:[address] OF THE BRAIN; CT ANGIOGRAM OF THE BRAIN; CT ANGIOGRAM OF THE NECK CLINICAL HISTORY: Left facial droop. COMPARISON STUDY: CT of the brain dated 10/29/2009. TECHNIQUE: Unenhanced axial CT scan of the brain is performed. Subsequently, following the IV administration of 119 of Optiray 320, CT angiogram of the head and neck was performed from the aortic arch to the vertex. Images are reviewed in the axial, sagittal, and coronal planes. 3-D MIPS images are created and assessed. IV contrast was administered without complication. All measurements were calculated based on NASCET criteria. A dose lowering technique was utilized adhering to the principles of ALARA. CT DOSE: 1069.87 mGy.cm FINDINGS: Brain parenchyma: There is age-related involutional change noting minimal microangiopathic disease. There is no hemorrhage, mass effect, or evidence of acute territorial ischemia by CT criteria. There is no evidence of enhancing mass lesion on the angiogram phase images. The ventricles, sulci, and cisterns are prominent secondary to involutional change. Hernández-white matter differentiation is preserved. No extra-axial fluid collection is seen. Thoracic aorta: Visualized portions of the thoracic aorta are normal in caliber. The aortic arch demonstrates standard 3-vessel anatomy. Right carotid arterial system: The right common carotid artery is widely patent, as are the right internal and external carotid arteries. The distal right int ernal carotid artery demonstrates a beaded appearance. Left carotid arterial system: The left common carotid artery is widely patent, as are the left internal and external carotid arteries. Vertebral arteries: The vertebral arteries are widely patent bilaterally and codominant. Subclavian arteries: Widely patent bilaterally. Intracranial vasculature: There is atherosclerotic calcification of the cavernous carotid arteries. The internal carotid arteries are patent at the skull base, as are the anterior and middle cerebral arteries bilaterally. The vertebrobasilar system and posterior cerebral arteries are widely patent. The vertebral arteries are codominant. There is a right posterior communicating artery. There is no aneurysm, high-grade stenosis, or focal vessel cut off seen throughout the intracranial circulation. Jugular veins: Patent bilaterally. Dural sinuses: Patent. Lung apices: Partially visualized upper lobe lung parenchyma appears clear. Soft tissues: The visualized pharyngeal soft tissues are normal in appearance noting angiographic phase technique. The oropharyngeal airway appears widely patent. The salivary and thyroid glands are normal in appearance. No cervical lymphadenopathy is seen. Skeletal structures: The skeletal structures are osteopenic. The calvarium appears intact. The cervical spine is maintained noting multilevel spondylosis. Orbits: The bony orbits are intact. Orbital contents are normal as visualized. Sinuses and mastoids: The paranasal sinuses are clear. The mastoid air cells are well pneumatized. IMPRESSION: 1. There is no hemorrhage, mass effect, or evidence of acute territorial ischemia by CT criteria. 2. Unremarkable CT angiogram of the brain. 3. The distal right internal carotid artery demonstrates a beaded appearance suggesting fibromuscular dysplasia. 4. Otherwise unremarkable CT angiogram of the neck. ACT 112: Negative or not required by law. Electronically signed by: Law Witt M.D. 10/07/2022 4:18 PM Brain MRI 10/07/22 18:04 Exam(s): MRI HEAD Without Contrast EXAM: MR Head Without Intravenous Contrast CLINICAL HISTORY: Reason for exam: stroke workup. TECHNIQUE: Magnetic resonance images of the head/brain without intravenous contrast in multiple planes. COMPARISON: Head CT done earlier the same day. FINDINGS: Brain: No mass-effect or acute infarct. No acute or chronic hemorrhage. Very mild atrophy and chronic white matter disease, overall normal exam for this age group. Ventricles: No hydrocephalus or midline shift. Bones/joints: No calvarial lesions. Soft tissues: No scalp hematoma. Sinuses: Clear. Mastoid air cells: No mastoid effusion. IMPRESSION: 1. No acute infarct, bleed, or acute intracranial abnormality. 2. Normal MRI brain for patient's age group. Electronically signed by: Michelle Baca M.D. 10/07/22 20:05 PM Medications Administered Current Inpatient Medications Albuterol (Albuterol 0.083% Nebu Soln 3 Ml Vial) 2.5 mg INH QIDR PRN; Protocol PRN Reason: shortness of breath or wheezing Stop: 11/06/22 20:50 Aspirin (Aspirin 81 Mg Ectab) 81 mg PO DAILY GAUTAM Stop: 11/07/22 08:59 Last Admin: 10/08/22 08:28 Dose: 81 mg Buspirone HCl (Buspirone 5 Mg Tab) 10 mg PO BID PRN PRN Reason: anxiety Stop: 11/06/22 20:50 Escitalopram Oxalate (Escitalopram Oxalate 20 Mg Tab) 20 mg PO QAM GAUTAM Stop: 11/07/22 08:59 Last Admin: 10/08/22 08:27 Dose: 20 mg Fluticasone/Vilanterol (Fluticasone/Vilanterol 100/25mcg 14 Puffs/Inhaler) 1 puffs INH DAILY GAUTAM Stop: 11/07/22 08:59 Last Admin: 10/08/22 08:28 Dose: 1 puffs Pantoprazole Sodium 40 mg/ (Syringe) 10 mls @ 5 mls/min IV DAILY@1100 GAUTAM Stop: 11/07/22 10:59 Last Admin: 10/08/22 11:07 Dose: 5 mls/min Acetaminophen (Ofirmev) 1,000 mg in 100 mls @ 400 mls/hr IV Q8H PRN PRN Reason: pain/fever Stop: 10/11/22 18:29 Miscellaneous Information (Pharmacist Discharge Med Rec Consult) 1 each N/A UD PRN PRN Reason: Consult Stop: 11/06/22 17:34 Ondansetron HCl (Ondansetron Inj 2 Mg/Ml 2 Ml Vial) 4 mg IV Q6H PRN PRN Reason: Nausea And Vomiting Stop: 11/07/22 10:20
--- NOTE | 2022-10-08 14:23 | Neurology Consultation ---
Date of Consultation October 08, 2022 Assessment & Plan (1) Conversion disorder: Functional R sided weakness and L facial asymmetry in the setting of a normal MRI and significant life stressors with multiple deaths in the family. This is consistent with conversion disorder. There is no concern for meningitis and would not proceed with LP. I presented the diagnosis of conversion disorder which was received well. Recommend physical therapy and outpatient psychology referral. Would not otherwise adjust her medications at this time. No further neurologic workup or follow-up warranted. Telehealth Consultation Telehealth Information Telehealth Information: I performed this visit using a real-time telehealth connection between my location and the patients location ([facility]). After conn ecting through interactive tele-video, patient was identified by name and date of and/or wristband check.Patient (or authorized healthcare claims service representative) was informed that this was a telemedicine visit and it was being conducted confidentially over secure lines. My office door was closed and no one else was present in the room with me.Patient (or authorized healthcare claims service representative) provided consent to proceed with the visit, expressed an understanding of privacy and security of the telemedicine visit, and gave permission to have a hospital claims service representative in the room in order to assist with the visit and to conduct portions of the visit, as needed. I informed the patient (or authorized healthcare claims service representative) that I reviewed their record and presented the opportunity for them to ask any questions regarding the visit today. The patient agreed to participate. History of Present Illness Reason for Consultation: R sided weakness Requesting Physician: Dr. Melchor Attending Physician: Anay Melchor, DO History of Present Illness Nayana Sandhu is a 71 yo F presenting with 2 weeks of a funny feeling in her head and more recently R arm and leg weakness and L facial droop brought in with concern for stroke. The patient has been under a tremendous amount of stress recently with multiple deaths of her close family. She lost her 3 years ago and her sister had a lung transplant complicated by fungal meningitis. 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 She even had to take a break from shinto because she is so overwhelmed. She has a history of a "nervous breakdown" in the past but has been on SSRIs since then. She does not have a therapist but speaks to her square shear operator which helps with the stre ss. Allergies Allergy/AdvReac Type Severity Reaction Status Date / Time cefazolin Allergy Intermediate hives Verified 10/07/22 16:23 milnacipran [From Savella] Allergy Intermediate hives, Verified 10/07/22 16:23 nauseated duloxetine [From Cymbalta] AdvReac Severe Depression Verified 10/07/22 16:23 codeine AdvReac Mild NAUSEATED Verified 10/07/22 16:23 meperidine AdvReac Mild NAUSEATED Verified 10/07/22 16:23 morphine AdvReac Mild NASUEATED Verified 10/07/22 16:23 fabric softner Allergy Mild Unknown Uncoded 10/07/22 16:23 Home Medications Medication Instructions Recorded Confirmed Type albuterol sulfate 90 mcg/actuation 1 inh inhalation QID PRN shortness 10/05/20 10/07/22 Rx aerosol inhaler of breath or wheezing #8.5 grams albuterol sulfate 2.5 mg/3 mL 2.5 mg (3 mL) inhalation QID PRN 01/07/22 10/07/22 Rx (0.083 %) solution for nebulization shortness of breath or wheezing #90 mL omeprazole magnesium 20 mg 20 mg PO DAILY PRN Acid Reflux 05/16/22 10/07/22 History tablet,delayed release (Prilosec OTC) montelukast 10 mg tablet 10 mg PO QAM 05/27/22 10/07/22 History (Singulair) escitalopram oxalate 20 mg tablet 20 mg PO QAM #30 tabs 06/11/22 10/07/22 Rx chlorpheniramine maleate 4 mg 4 mg PO Q12H 30 days #60 tabs 08/13/22 10/07/22 Rx tablet (Allergy Relief (chlorpheniramine)) fluticasone furoate 100 1 inh inhalation DAILY #60 ea 08/13/22 10/07/22 Rx mcg-vilanterol 25 mcg/dose inhalation powder (Breo Ellipta) fluticasone propionate 50 1 spray intranasal BID #18.2 mL 08/13/22 10/07/22 Rx mcg/actuation nasal spray,suspension (Flonase Allergy Relief) sodium chloride, sodium See Rx Instructions .Route 08/13/22 10/07/22 Rx bicarb-nasal rinse squeeze bottle .COMPLEX #50 ea with packet (Neilmed Sinus Rinse Complete with packet) buspirone 10 mg tablet 10 mg PO BID PRN anxiety #30 tabs 08/22/22 10/07/22 Rx tobramycin 0.3 %-dexamethasone 0.1 1 drp OPR BID 10/07/22 10/07/22 History % eye drops,suspension Patient History Medical History Anxiety Arthritis Asthma Chronic obstructive pulmonary disease Depression Diverticulosis Dyspnea on exertion GERD (gastroesophageal reflux disease) Hiatal hernia History of colon polyps History of COVID-19 Inpatient hospitalization within last 30 days Multiple pulmonary nodules Nausea and vomiting after administration of anesthetic agent Osteoporosis Peripheral edema Rhinovirus Sinus tachycardia Surgical History History of bilateral tubal ligation History of cholecystectomy History of colonoscopy with polypectomy History of esophagogastroduodenoscopy (EGD) History of left knee surgery History of low transverse section History of tonsillectomy and adenoidectomy History of tooth extraction History of total hysterectomy with bilateral salpingo-oophorectomy (BSO) History of total left knee replacement (TKR) Hx of appendectomy Hx of laparoscopy Family History Sister Family history of diabetes mellitus Leukemia COPD (chronic obstructive pulmonary disease) Cancer Family hx colonic polyps Adverse anesthesia outcome Environmental allergies Brother Family history of diabetes mellitus COPD (chronic obstructive pulmonary disease) Family hx colonic polyps Asthma Father Family history of diabetes mellitus Hypertension Asthma Mother Environmental allergies Other No family history of adverse response to anesthesia No family history of bleeding disorder Denies family history of Ovarian cancer Prostate cancer Myocardial infarction Breast cancer Colorectal cancer Social History Smoking Status: Former smoker Tobacco Type: Cigarettes Age Started Using Tobacco: 18; Age Quit Using Tobacco: 24; Second Hand Exposure: No; Do You Dip or Chew Tobacco: No; Hx Alcohol Use: No Hx Substance Use: No Preferred Language: Lao Communication Ability: Effective Visual Impairment: Limited Hearing Ability: Normal Seed Cutter Required: No Beliefs That Will Affect Care: None marital status: / Current Living Situation: Alone Current Living Situation Comment: passed 2 yrs ago current occupational status: retired How many Children do You have: 1 Feels Safe at Home: Yes Childhood Exposure to Second-Hand Smoke: Yes Diet: regular caffeine: Yes during the past year weight has: remained stable Dental Care, Regularly: Yes Physical Activity Frequency: 5-6 Times per Week Seatbelt Use: always Sunscreen Use: Yes Assistive Devices: None Review of Systems +Stress, L facial droop, R sided weakness Physical Exam Neurological Examination: Mental Status: Awake and alert. Oriented to person, place, and time. Fluent. Comprehension intact. Affect appropriate. Cranial Nerves: II: Reads NIHSS cards, pupils 3/3 to 2/2, walker grossly intact. III/IV/: Versions intact without nystagmus, no gaze preference. VII: Facial expression asymmetric with platysma activation on the L and symmetric cheek puff. VIII: Hearing intact to voice IX/X: Palate elevates symmetrically XII: Tongue midline Motor: Strength was reduced on the R with vertical drift and visible hoovers. Coordination: No dysmetria Reflexes: Unable to assess over telemedicine Results & Data Vital Signs (Past 12 Hours) Vital Signs Temp Pulse Resp BP Pulse Ox O2 Del Method 10/08/22 12:13 36.4 C L 68 17 144/77 H 93 Room Air 10/08/22 07:37 36.5 C 71 17 123/74 95 Room Air 10/08/22 03:09 36.6 C 64 16 104/61 94 Room Air Laboratory Results Abnormal lab results 10/07/22 10/07/22 10/07/22 Range/Units 14:25 16:23 16:31 MPV 9.2 L (9.4-12.4) fL Chloride (98-107) mmol/L POC Anion Gap 15.0 L (16-25) mmol/L Creatinine (0.6-1.2) mg/dl Glucose (70-99(Fasting)) mg/dl POC Glucose 105 H (70-99) mg/dl Hemoglobin A1c (4.5-5.6) % 10/08/22 10/08/22 10/08/22 Range/Units 05:54 05:54 05:55 MPV 9.2 L (9.4-12.4) fL Chloride 108 H (98-107) mmol/L POC Anion Gap (16-25) mmol/L Creatinine 0.57 L (0.6-1.2) mg/dl Glucose 112 H (70-99(Fasting)) mg/dl POC Glucose (70-99) mg/dl Hemoglobin A1c 5.7 H (4.5-5.6) % Diagnostic Findings MRI brain - Unremarkable CTA head and neck - Unremarkable
[2022-10-08] MEDS ORDERED: ACETAMINOPHEN 1,000 MG/100 ML VIAL IV SCH (16:00)
[2022-10-08 16:44] LABS: Lyme Ab IgG w/WB Rflx Negative (Negative); Lyme Ab IgM w/WB Rflx Negative (Negative)
[2022-10-08] MEDS ORDERED: ACETAMINOPHEN 1,000 MG/100 ML VIAL IV PRN (18:30)
[2022-10-08] MEDS: ACETAMINOPHEN 325 MG TAB PO PRN (20:00)
[2022-10-08] MEDS: PANTOprazole 40 MG in SYRINGE 0 ML IV SCH (20:01)
[2022-10-09 06:51] LABS: Basophils # (auto) 0.06 K/uL (0-0.2); Basophils % (auto) 1.2 %; Eosinophils # (auto) 0.23 K/uL (0-0.50); Eosinophils % (auto) 4.5 %; Hematocrit (blood only) 38.8 % (37.0-47.0); Hemoglobin 13.2 g/dl (12.0-16.0); Immature Granulocytes # (auto) 0.02 K/uL (0.01-0.20); Immature Granulocytes % (auto) 0.4 %; Lymphocytes # (auto) 1.31 K/uL (1.2-3.4); Lymphocytes % (auto) 25.5 %; Mean Corpuscular Volume 85.3 fL (80.0-100.0); Mean Platelet Volume 9.2 fL (9.4-12.4); Monocytes # (auto) 0.47 K/uL (0.11-0.59); Monocytes % (auto) 9.1 %; Neutrophils # (auto) 3.05 K/uL (1.40-6.50); Neutrophils % (auto) 59.3 %; Platelet Count 233 K/uL (130-400); RDW Coefficient of Variation 13.1 % (11.5-14.5); RDW Standard Deviation 40.6 fL (36.4-46.3); Red Blood Count 4.55 M/uL (4.20-5.40); White Blood Count 5.14 K/ul (4.8-10.8)
[2022-10-09 07:09] LABS: BUN Creatinine Ratio 16.7 (10-20); Creatinine Clr Calc Pharmacy 82.8 ml/min; Est GFR (African American) 107.8 ml/min; Potassium 3.9 mmol/L (3.5-5.1)
--- NOTE | 2022-10-09 08:37 | Discharge Summary ---
Discharge Summary Date of Service October 09, 2022 Admission HPI Per Admitting Provider Nayana is a 71 year old female with a PMH significant for mild cognitive impairment, anxiety, chronic cough, andGranulomatous lung disease who presented to the [facility] ED via EMS on 10/07 as a stroke alert. Per the ED staff the patient developed right facial droop, right arm and, and right leg weakness which started at approximately 11 am today. She was noted to be hypertensive with systolic BP in the 170's but otherwise stable. Labs including CBC, and CMP were unremarkable. Ct of the head wo con and CTA of the head/neck was read as "1. There is no hemorrhage, mass effect, or evidence of acute territorial ischemia by CT criteria. 2. Unremarkable CT angiogram of the brain. 3. The distal right internal carotid artery demonstrates a beaded appearance suggesting fibro muscular dysplasia. 4. Otherwise unremarkable CT angiogram of the neck.". Prior to admission the patient was ordered 300 mg HI Aspirin. At the time of the exam the patient was sitting in bed in no acute distress with her son and [id number] sitting bedside. The patient was able to pass her bedside dysphagia screen just prior to my exam. 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 She states that while walking to the car she started to feel "odd" in her head, almost like a fullness. She states that she also felt off balance, like she was drifting to the left while walking. She states that her right arm/leg felt numb and weak. She denies any headache, changes in vision, hearing, taste, and smell, chest pain, increased SOB from baseline, abd pain, nausea, vomiting, dysuria, hematuria, melena, increased LE swelling, and recent trauma. When asked, she states that she had 3 episodes of diarrhea this am, but this has resolved since arrival. She denies drinking well water or recent antibiotic use. When asked, she she states that she has had the feeling in her head previously but never as severe as today and never with the numbness/tingling/weakness. She denies recent tobacco or alcohol use. She feels as though her symptoms have improved but not completely resolved at this time. We discussed code status, the patient wishes to be a DNR/DNI and her son is her POA if she cannot make medical decisions herself. Please refer to Dr. Lombardo's attestation for any changes to the treatment plan Admission Exam Per Admitting Provider Physical Exam: General:In no acute distress, stated age, well-nourished, non-toxic appearing HEENT:atraumatic, no scleral icterus, pupils around round, symmetrical, and reactive to light, moist mucus membranes, trachea midline, no thyromegaly Chest/Pulm:No respiratory distress, symmetrical chest expansion, clear breath sounds throughout Cardiac:RRR, no murmurs noted Abdomen:Negative for ascites and bruising, normoactive bowel sounds, soft, non-tender to palpation throughout Musculoskeletal:Symmetrical and without signs of acute trauma, Patient with minimal decreased strength in the RUE and RLE compared to left on testing Extremities:Radial, dorsalis pedis, and posterior tibial pulses are intact and symmetrical, no edema noted in the BL LE's Skin:Warm, dry, no rashes , lesions, or scars noted Neuro:Alert and oriented to person, place, month, year, and president, minimal right facial droop, CN II-XII tested and otherwise intact intact, finger to nose test negative BL, negative pronator drift and Babinski BL, no tremors noted Psych:No acute distress, calm and cooperative during the exam Principal Dx & Hospital Course #1 = Principal Diagnosis (1) 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 She successfully passed her bedside dysphagia screen -RUE and RLE weakness has resolved at this time -CBC reviewed; no evidence of meningitis/encephalitis such as elevated WBC count, fevers, did have sister with fungal meningitis ~7 weeks ago however per ID would not be likely to be transmissible -CT of the head and CTA of the head/neck without evidence of CVA, MRI without evidence of CVA or other acute pathology -Neurology consulted and appreciate recommendations: given resolution in motor symptoms with improvement in anxiety/depression symptoms, no evidence of CVA or infection, suspect functional/conversion disorder in the setting of tremendous and multiple recent stressors, counseling and PCP follow up recommended -Possible TIA also on differential given symptom resolution <24 hours after onset -Recommended psychiatry/counseling to patient, she is amenable so will provide resources, also recommended PCP follow up -Cholesterol panel reasonable, follow up with PCP. Started aspirin 81mg daily for fibromuscular dysplasia findings on imaging, see below, A1c non-diabetic (2) Conversion disorder: see above (3) Fibromuscular dysplasia: -Noted evidence of such in distal RIGHT internal carotid -Continue aspirin 81mg daily for FMD -BP at goal for age, follow up with PCP (4) Stroke-like symptoms: -See above, stroke has since been ruled out (5) Granulomatous lung disease: -Stable -Continue home breathing treatments (6) Depression: -Continue Lexapro, with outpatient Psych/counseling as above (7) GERD without esophagitis: -Continue PPI Plan Patient did well with PT and OT evaluations, no speech issues, symptoms largely resolved. Plan for discharge home today with PCP follow up. Discharge Exam Constitutional WD/WN, vitals as above Neurologic No slurred speech, no notable facial droop, strength 5/5 bilateral upper and lower extremities, slow speech at times Psychiatric tearful at times, alert and oriented x3 Updated Medication List Medication Instructions Recorded Confirmed Type albuterol sulfate 90 mcg/actuation 1 inh inhalation QID PRN shortness 10/05/20 10/07/22 Rx aerosol inhaler of breath or wheezing #8.5 grams albuterol sulfate 2.5 mg/3 mL 2.5 mg (3 mL) inhalation QID PRN 01/07/22 10/07/22 Rx (0.083 %) solution for nebulization shortness of breath or wheezing #90 mL omeprazole magnesium 20 mg 20 mg PO DAILY PRN Acid Reflux 05/16/22 10/07/22 His tory tablet,delayed release (Prilosec OTC) montelukast 10 mg tablet 10 mg PO QAM 05/27/22 10/07/22 History (Singulair) escitalopram oxalate 20 mg tablet 20 mg PO QAM #30 tabs 06/11/22 10/07/22 Rx chlorpheniramine maleate 4 mg 4 mg PO Q12H 30 days #60 tabs 08/13/22 10/07/22 Rx tablet (Allergy Relief (chlorpheniramine)) fluticasone furoate 100 1 inh inhalation DAILY #60 ea 08/13/22 10/07/22 Rx mcg-vilanterol 25 mcg/dose inhalation powder (Breo Ellipta) fluticasone propionate 50 1 spray intranasal BID #18.2 mL 08/13/22 10/07/22 Rx mcg/actuation nasal spray,suspension (Flonase Allergy Relief) sodium chloride, sodium See Rx Instructions .Route 08/13/22 10/07/22 Rx bicarb-nasal rinse squeeze bottle .COMPLEX #50 ea with packet (Neilmed Sinus Rinse Complete with packet) buspirone 10 mg tablet 10 mg PO BID PRN anxiety #30 tabs 08/22/22 10/07/22 Rx tobramycin 0.3 %-dexamethasone 0.1 1 drp OPR BID 10/07/22 10/07/22 History % eye drops,suspension aspirin 81 mg tablet,delayed 81 mg PO DAILY #0 tabs 10/09/22 Rx release Hospital Stay Data Consultations 10/07/22 16:42 ED Decision to Admit Stat 10/08/22 10:21 Consult Neurology Routine 10/08/22 11:34 Consult Infectious Diseases Routine Diagnostic Imagining Performed 10/07/22 15:47 CT angio head w con Stat CT angio neck with con Stat CT head/brain wo con Stat 10/07/22 18:04 MRI Brain [MR brain wo con] Urgent Discharge Instructions Given to Patient (Per Discharging Provider) You were admitted for evaluation for stroke. Fortunately, you did not have evidence of a stroke or an infection of the brain on your labwork or imaging studies. With time and headache medication, your symptoms improved and you were felt to be safe for discharge home. We believe that you had was is called a functional neurologic disorder or conversion disorder, which is when increased levels of stress can cause a misfiring in the brain and "mimic" a stroke. With stress management, medications, and counseling, this gets better. Please take it easy in the coming days; it is difficult to take care of others when you are not at your best. You can take Tylenol for headache; you can take up to 1000 milligrams every 8 hours for headache. I have also added a daily baby aspirin for some findings in your CT scan of your neck (not a stroke, but a tissue change finding that was incidentally noted), to decrease your risk of strokes. You can get a bottle of 81 milligram aspirin over the counter. You can ask your pharmacist to help you find this. Please follow up with your family doctor in the next two weeks. 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
[2022-10-09] MEDS: ASPIRIN 81 MG ECTAB PO SCH (08:54)
[2022-10-09] MEDS: ESCITALOPRAM OXALATE 20 MG TAB PO SCH (08:54)
[2022-10-09] MEDS: FLUTICASONE/VILANTEROL 100/25MCG 14 PUFFS/INHALER INH SCH (08:54)
[2022-10-09] MEDS: ACETAMINOPHEN 325 MG TAB PO PRN (08:54)
[2022-10-09] MEDS: PANTOprazole 40 MG in SYRINGE 0 ML IV SCH (08:56)
== END 2022-10-09 13:57 | disposition home or self-care (01) | DRG 880 ==
LOC: ED 15:53 → SUATTDRO 18:19 → 4W 18:19